=== PATIENT | female | born 1950 | race Caucasian/White ===

== ENCOUNTER 2023-01-01 01:55 | Inpatient (IN) | payer MEDICARE, SELFPAY ==
[2023-01-01] VITALS (130 sets, daily range): BP systolic 66–173; BP diastolic 0–113; PULSE 56–142; RESP 14–29; TEMP 35–36.5; O2SAT 91–100; BMI 67.3; BMI 76.0
--- NOTE | 2023-01-01 02:20 | XR_ITS ---
The [address] [address] Patient Name: DEBORA QUAN MRN: [id number] date: 1950 Sex: F Assigned Patient Location: ER Current Patient Location: ED.MAIN Accession/Order Number: [id number] Exam Date: 01/01/2023 02:35 Report Date: 01/01/2023 03:03 At the request of: ANNA RYAN Procedure: XR chest 1V EXAMINATION: XR chest 1V HISTORY: altered mental COMPARISON: 09/24/2017 TECHNIQUE: AP portable FINDINGS: LUNGS: Low lung lines. Moderate bibasilar infiltrates left greater than right obscuring the hemidiaphragms and partially obscuring the heart borders VASCULATURE: No increased pulmonary vasculature. PLEURA: No pneumothorax, effusion, or pleural thickening. CARDIAC: No cardiomegaly or cardiac silhouette abnormality. MEDIASTINUM: No visible mass or adenopathy. BONES: Mild degenerative disc disease and spondylosis without visible acute abnormalities. OTHER: Enteric tube tip extends off the field of view XR/XR chest 1V IMPRESSION: Moderate bibasilar infiltrates, left greater than right. Electronically authenticated by: KARLIE TONG Date: 01/01/2023 03:03
--- NOTE | 2023-01-01 02:20 | ECG_ITS ---
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
--- NOTE | 2023-01-01 02:25 | ED_ITS ---
HPI - Altered Mental Status General Chief Complaint: Altered Mental Status Stated Complaint: FALL Time Seen by Provider: 01/01/23 02:20 History of Present Illness HPI narrative: patient brought to the ER from home via [facility] for altered mental state. She is completely dependent on the care of her . She is not able to provide any history . states she is nonambulatory for 3 or more years. They have hospital bed and lift in the home. She has become more unresponsive over the past 3 days and worse on day he called squad. Their home is kept at 59 degrees. She arrives hypothermic and lethargic. Her eys move some when her named is called. Also noticed what appears to be coffee ground emesis in her mouth Related Data Home Medications Medication Instructions Recorded Confirmed albuterol sulfate 2.5 mg/3 mL 2.5 mg inhalation Q6H PRN 01/01/23 01/01/23 (0.083 %) solution for nebulization shortness of breath or wheezing apixaban 5 mg tablet (Eliquis) 5 mg PO Q12H 01/01/23 01/01/23 biotin 1,000 mcg chewable tablet 1,000 mcg PO DAILY 01/01/23 01/01/23 centrum complete womens vitamin 1 tab PO DAILY 01/01/23 01/01/23 cholecalciferol (vitamin D3) 125 5,000 unit PO DAILY 01/01/23 01/01/23 mcg (5,000 unit) tablet (Vitamin D3) duloxetine 60 mg capsule,delayed 60 mg PO DAILY 01/01/23 01/01/23 release sprinkle loratadine 10 mg tablet 10 mg PO Q24H 01/01/23 01/01/23 metoprolol succinate 25 mg 12.5 mg PO Q12H 01/01/23 01/01/23 tablet,extended release 24 hr montelukast 10 mg tablet 10 mg PO BEDTIME 01/01/23 01/01/23 nystatin 100,000 unit/gram topical 1 applic topical BID 01/01/23 01/01/23 powder pantoprazole 40 mg tablet,delayed 40 mg PO DAILY 01/01/23 01/01/23 release tiotropium 2.5 mcg-olodaterol 2.5 2 inh inhalation DAILY 01/01/23 01/01/23 mcg/actuation mist for inhalation (Stiolto Respimat) tramadol 50 mg tablet 50 mg PO DAILY PRN pain 01/01/23 01/01/23 vitamin B complex (B 1 tab PO BID 01/01/23 01/01/23 Complex-Vitamin B12 tablet) Allergies Allergy/AdvReac Type Severity Reaction Status Date / Time Penicillins Allergy Unknown Verified 01/01/23 02:50 Review of Systems ROS Status of ROS unobtainable due to mental status [facility] Medical History (Updated 01/01/23 @ 05:31 by Aaron Frank MD) Surgical History (Updated 01/01/23 @ 02:52 by Felicia Cervantes) Social History Smoking status: Never smoker Exam Constitutional Vital Signs, click to edit/add: Last Vital Signs Temp 95 F L 01/01/23 08:15 Pulse 126 H 01/01/23 16:00 Resp 20 01/01/23 16:00 BP 112/79 01/01/23 15:00 Pulse Ox 98 01/01/23 15:58 O2 Del Method Mechanical Ventilator 01/01/23 15:00 O2 Flow Rate 4 01/01/23 15:58 FiO2 50 01/01/23 15:58 Exam limitations: altered mental status General appearance: lethargic Nutritional appearance: obese HENMT Common normals: normocephalic and head/scalp atraumatic Eye Common normals: conjunctivae normal Respiratory Other: diminished breath sounds. No obvious wheezing Cardio Common normals: S1 normal heart sound and S2 normal heart sound GI Common normals: non-tender Extremity General: edema Neuro [place] Coma Scale: GCS not evaluated Course Vital Signs Vital signs: Vital Signs Pulse Oximetry 96 01/01/23 02:00 Oxygen Delivery Method Nasal Cannula 01/01/23 02:00 Oxygen Delivery Flow Rate 4 01/01/23 02:00 Temperature 95 F L 01/01/23 08:15 Pulse Rate 126 H 01/01/23 16:00 Respiratory Rate 20 01/01/23 16:00 Blood Pressure 112/79 01/01/23 15:00 Pulse Oximetry 98 01/01/23 15:58 Oxygen Delivery Method Mechanical Ventilator 01/01/23 15:00 Oxygen Delivery Flow Rate 4 01/01/23 15:58 Fraction of Inspired Oxygen 50 01/01/23 15:58 MDM - Altered Mental Status MDM Narrative Medical decision making narrative: patient arrives unresponsive with history per of declining mental state for past 3 days. Labs reveal PC02 >120 and Ph 7.0. We did place bipap but her ABGs did not change. Patient intubated. Her hyperkalemia treated with D50 , insulin and albuterol NMT. xray with bilat infiltrates. blood cx orderd and Levaquin and vanco IVPB ordered. Patient becoming more responsive and biting on tube. Versed drip ordered to relax the patient so she can tolerate the tube. gastro occult returned positive. NG in place and no evidence of bleed at this time. Protonix IV ordered . Patient is awake and making eye contact. placed her glasses on so she could see everyone. Her BP has decreased to 75 systolic and additional IVF ordered Lab Data Labs: Lab Results 01/01/23 01/01/23 01/01/23 Range/Units 02:10 02:15 02:20 WBC 8.9 (4.0-11.0) 10^3/uL RBC 4.94 (4.20-5.40) 10^6/uL Hgb 13.5 (12.0-16.0) g/dL Hct 48.3 H (36.0-48.0) % MCV 97.8 (81.0-99.0) fL MCH 27.3 (26.7-34.0) pg MCHC 28.0 L (29.9-35.2) g/dL RDW 18.1 H (11.0-15.0) % Plt Count 149 L (150-450) 10^3/uL MPV 10.9 (9.5-13.5) fL Seg Neuts % (Manual) 83.0 Band Neutrophils % 4.0 (0-5) % Lymphocytes % (Manual) 5.0 L (20.5-60.0) % Monocytes % (Manual) 7.0 (1.7-12.0) % Eosinophils % (Manual) 1.0 (0.9-7.0) % Basophils % (Manual) 0.0 L (0.2-2.0) % Neutrophils # (Manual) 7.38 H (1.4-6.5) 10^3/uL Band Neutrophils # 0.4 H (0.0-0.3) 10^3/uL Lymphocytes # (Manual) 0.44 L (1.20-3.80) 10^3/uL Monocytes # (Manual) 0.62 (0.30-0.80) 10^3/uL Eosinophils # (Manual) 0.08 (0.00-0.70) 10^3/uL Basophils # (Manual) 0.00 (0.00-0.10) 10^3/uL Puncture Site ABG pH (7.350-7.450) ABG pCO2 (35.0-45.0) mmHg ABG pO2 (80.0-100.0) mmHg ABG HCO3 (22.0-26.0) mmol/L ABG O2 Saturation % ABG Base Excess (-2.0-2.0) mmol/L Chilo Test (POSITIVE) O2 Liters/Min Vent Mode FiO2 % Tidal Volume BiPAP Sodium 137 (136-145) mmol/L Potassium 5.7 H (3.5-5.1) mmol/L Chloride 99 (98-107) mmol/L Carbon Dioxide 40.2 H (21.0-32.0) mmol/L Anion Gap 3.5 BUN 18.0 (7.0-18.0) mg/dL Creatinine 0.82 (0.55-1.02) mg/dL Est GFR ( Amer) >60 (>=60) Est GFR (Non-Af Amer) >60 (>=60) BUN/Creatinine Ratio 22.0 Glucose 173 H (74-106) mg/dL Lactate 0.9 (0.4-2.0) mmol/L Calcium 9.3 (8.5-10.1) mg/dL Troponin I High Sens 20.1 (4.0-51.3) pg/mL Urine Color Dk. brown (YELLOW) Urine Clarity Cloudy A (CLEAR) Urine pH 6.0 (5.0-9.0) Ur Specific [place] >=1.030 A (1.005-1.025) Urine Protein 100 A (NEG/TRACE) mg/dL Urine Glucose (UA) Negative (NEGATIVE) mg/dL Urine Ketones Negative (NEGATIVE) mg/dL Urine Occult Blood Large A (NEGATIVE) Urine Nitrite Negative (NEGATIVE) Urine Bilirubin Small A (NEGATIVE) Urine Urobilinogen 1.0 (0.2-1.0) EU/dL Ur Leukocyte Esterase Negative (NEGATIVE) Urine RBC >100 A (0-2) #/HPF Urine WBC 5-10 A (NONE SEEN) #/HPF Ur Squamous Epith Cells Rare (NONE/RARE) #/LPF Urine Crystals None seen (None Seen) #/HPF Urine Bacteria Small A (NONE SEEN) #/HPF Urine Casts None seen (NONE SEEN) #/LPF Urine Mucus None seen (NONE SEEN) Ur Culture Indicated? Yes Gastric Fluid pH Gastric Occult Blood Salicylates <2.8 (<=19.9) mg/dL Urine Opiates Screen Cancelled Ur Buprenorphine Scrn Cancelled Ur Oxycodone Screen Cancelled Urine Methadone Screen Cancelled Ur Propoxyphene Screen Cancelled Acetaminophen <2.0 L (10.0-30.0) ug/mL Ur Barbiturates Screen Cancelled U Tricyclic Antidepress Cancelled Ur Phencyclidine Scrn Cancelled Ur Amphetamines Screen Cancelled U Methamphetamines Scrn Cancelled U Benzodiazepines Scrn Cancelled Urine Cocaine Screen Cancelled U Cannabinoids Screen Cancelled Ethanol Quant <3 mg/dL SARS-CoV-2 (PCR) Negative (NEGATIVE) Influenza Type A Ag Negative Influenza Type B Ag Negative SARS-CoV-2 RNA (SHUN) Not detected (NOT DETECTE) POC Glucose (74-106) mg/dL 01/01/23 01/01/23 01/01/23 Range/Units 02:50 03:10 04:00 WBC (4.0-11.0) 10^3/uL RBC (4.20-5.40) 10^6/uL Hgb (12.0-16.0) g/dL Hct (36.0-48.0) % MCV (81.0-99.0) fL MCH (26.7-34.0) pg MCHC (29.9-35.2) g/dL RDW (11.0-15.0) % Plt Count (150-450) 10^3/uL MPV (9.5-13.5) fL Seg Neuts % (Manual) Band Neutrophils % (0-5) % Lymphocytes % (Manual) (20.5-60.0) % Monocytes % (Manual) (1.7-12.0) % Eosinophils % (Manual) (0.9-7.0) % Basophils % (Manual) (0.2-2.0) % Neutrophils # (Manual) (1.4-6.5) 10^3/uL Band Neutrophils # (0.0-0.3) 10^3/uL Lymphocytes # (Manual) (1.20-3.80) 10^3/uL Monocytes # (Manual) (0.30-0.80) 10^3/uL Eosinophils # (Manual) (0.00-0.70) 10^3/uL Basophils # (Manual) (0.00-0.10) 10^3/uL Puncture Site Left radial Left radial ABG pH 7.073 L* 7.051 L* (7.350-7.450) ABG pCO2 >120.0 H* >120.0 H* (35.0-45.0) mmHg ABG pO2 77.5 L 97.1 (80.0-100.0) mmHg ABG HCO3 (22.0-26.0) mmol/L ABG O2 Saturation 93.1 96.3 % ABG Base Excess (-2.0-2.0) mmol/L Chilo Test Pos (POSITIVE) O2 Liters/Min 3.5 Vent Mode FiO2 40 % Tidal Volume BiPAP 18/8 Sodium (136-145) mmol/L Potassium (3.5-5.1) mmol/L Chloride (98-107) mmol/L Carbon Dioxide (21.0-32.0) mmol/L Anion Gap BUN (7.0-18.0) mg/dL Creatinine (0.55-1.02) mg/dL Est GFR ( Amer) (>=60) Est GFR (Non-Af Amer) (>=60) BUN/Creatinine Ratio Glucose (74-106) mg/dL Lactate (0.4-2.0) mmol/L Calcium (8.5-10.1) mg/dL Troponin I High Sens (4.0-51.3) pg/mL Urine Color (YELLOW) Urine Clarity (CLEAR) Urine pH (5.0-9.0) Ur Specific [place] (1.005-1.025) Urine Protein (NEG/TRACE) mg/dL Urine Glucose (UA) (NEGATIVE) mg/dL Urine Ketones (NEGATIVE) mg/dL Urine Occult Blood (NEGATIVE) Urine Nitrite (NEGATIVE) Urine Bilirubin (NEGATIVE) Urine Urobilinogen (0.2-1.0) EU/dL Ur Leukocyte Esterase (NEGATIVE) Urine RBC (0-2) #/HPF Urine WBC (NONE SEEN) #/HPF Ur Squamous Epith Cells (NONE/RARE) #/LPF Urine Crystals (None Seen) #/HPF Urine Bacteria (NONE SEEN) #/HPF Urine Casts (NONE SEEN) #/LPF Urine Mucus (NONE SEEN) Ur Culture Indicated? Gastric Fluid pH 1 Gastric Occult Blood Postive Salicylates (<=19.9) mg/dL Urine Opiates Screen Ur Buprenorphine Scrn Ur Oxycodone Screen Urine Methadone Screen Ur Propoxyphene Screen Acetaminophen (10.0-30.0) ug/mL Ur Barbiturates Screen U Tricyclic Antidepress Ur Phencyclidine Scrn Ur Amphetamines Screen U Methamphetamines Scrn U Benzodiazepines Scrn Urine Cocaine Screen U Cannabinoids Screen Ethanol Quant mg/dL SARS-CoV-2 (PCR) (NEGATIVE) Influenza Type A Ag Influenza Type B Ag SARS-CoV-2 RNA (SHUN) (NOT DETECTE) POC Glucose (74-106) mg/dL 01/01/23 01/01/23 01/01/23 Range/Units 05:39 05:43 05:44 WBC (4.0-11.0) 10^3/uL RBC (4.20-5.40) 10^6/uL Hgb (12.0-16.0) g/dL Hct (36.0-48.0) % MCV (81.0-99.0) fL MCH (26.7-34.0) pg MCHC (29.9-35.2) g/dL RDW (11.0-15.0) % Plt Count (150-450) 10^3/uL MPV (9.5-13.5) fL Seg Neuts % (Manual) Band Neutrophils % (0-5) % Lymphocytes % (Manual) (20.5-60.0) % Monocytes % (Manual) (1.7-12.0) % Eosinophils % (Manual) (0.9-7.0) % Basophils % (Manual) (0.2-2.0) % Neutrophils # (Manual) (1.4-6.5) 10^3/uL Band Neutrophils # (0.0-0.3) 10^3/uL Lymphocytes # (Manual) (1.20-3.80) 10^3/uL Monocytes # (Manual) (0.30-0.80) 10^3/uL Eosinophils # (Manual) (0.00-0.70) 10^3/uL Basophils # (Manual) (0.00-0.10) 10^3/uL Puncture Site Left radial ABG pH 7.237 L* (7.350-7.450) ABG pCO2 90.9 H* (35.0-45.0) mmHg ABG pO2 129.0 H (80.0-100.0) mmHg ABG HCO3 38.6 H (22.0-26.0) mmol/L ABG O2 Saturation 99.2 % ABG Base Excess 11.2 H (-2.0-2.0) mmol/L Chilo Test Pos (POSITIVE) O2 Liters/Min Vent Mode Ac FiO2 40 % Tidal Volume 500 BiPAP Sodium 137 (136-145) mmol/L Potassium 3.5 (3.5-5.1) mmol/L Chloride 105 (98-107) mmol/L Carbon Dioxide 30.5 (21.0-32.0) mmol/L Anion Gap 5.0 BUN 14.0 (7.0-18.0) mg/dL Creatinine 0.64 (0.55-1.02) mg/dL Est GFR ( Amer) >60 (>=60) Est GFR (Non-Af Amer) >60 (>=60) BUN/Creatinine Ratio 21.9 Glucose 303 H (74-106) mg/dL Lactate 1.1 (0.4-2.0) mmol/L Calcium 6.2 L (8.5-10.1) mg/dL Troponin I High Sens (4.0-51.3) pg/mL Urine Color (YELLOW) Urine Clarity (CLEAR) Urine pH (5.0-9.0) Ur Specific [place] (1.005-1.025) Urine Protein (NEG/TRACE) mg/dL Urine Glucose (UA) (NEGATIVE) mg/dL Urine Ketones (NEGATIVE) mg/dL Urine Occult Blood (NEGATIVE) Urine Nitrite (NEGATIVE) Urine Bilirubin (NEGATIVE) Urine Urobilinogen (0.2-1.0) EU/dL Ur Leukocyte Esterase (NEGATIVE) Urine RBC (0-2) #/HPF Urine WBC (NONE SEEN) #/HPF Ur Squamous Epith Cells (NONE/RARE) #/LPF Urine Crystals (None Seen) #/HPF Urine Bacteria (NONE SEEN) #/HPF Urine Casts (NONE SEEN) #/LPF Urine Mucus (NONE SEEN) Ur Culture Indicated? Gastric Fluid pH Gastric Occult Blood Salicylates (<=19.9) mg/dL Urine Opiates Screen Ur Buprenorphine Scrn Ur Oxycodone Screen Urine Methadone Screen Ur Propoxyphene Screen Acetaminophen (10.0-30.0) ug/mL Ur Barbiturates Screen U Tricyclic Antidepress Ur Phencyclidine Scrn Ur Amphetamines Screen U Methamphetamines Scrn U Benzodiazepines Scrn Urine Cocaine Screen U Cannabinoids Screen Ethanol Quant mg/dL SARS-CoV-2 (PCR) (NEGATIVE) Influenza Type A Ag Influenza Type B Ag SARS-CoV-2 RNA (SHUN) (NOT DETECTE) POC Glucose 231 H (74-106) mg/dL Critical Care Time Critical Care Time Critical Care Time: Yes Total Critical Care Time: 2 Attestation: this time spent reviewing labs, discussing with the . ordering additional testing and treatment and personally monitoring the patient Discharge Plan Discharge Chief Complaint: Altered Mental Status Clinical Impression: Hypothermia, Respiratory failure, Aspiration pneumonia of both lower lobes, Altered mental status, Acute upper GI bleed, Acute hyperkalemia, Acute respiratory acidosis, Atrial fibrillation Patient Disposition: Admitted As Inpatient Time of Disposition Decision: 05:50 Condition: Critical Discharge Date/Time: 01/01/23 07:10 Procedures ED Procedure Instructions Procedures Procedures: patient in respiratory failure : patient intubated on 2nd attempt with #7 ET tube. Tolerated the procedure well without complications
[2023-01-01] MEDS: 0.9 % SODIUM CHLORIDE 1,000 ML 999 ML IV ×4 (02:27→07:20)
[2023-01-01 02:35] LABS: Hematocrit 48.3 % (36.0-48.0); Hemoglobin 13.5 g/dL (12.0-16.0); Mean Corpuscular Hemoglobin 27.3 pg (26.7-34.0); Mean Corpuscular Volume 97.8 fL (81.0-99.0); Mean Platelet Volume 10.9 fL (9.5-13.5); Platelet Count 149 10^3/uL (150-450); Red Blood Count 4.94 10^6/uL (4.20-5.40); Red Cell Distribution Width 18.1 % (11.0-15.0); White Blood Count 8.9 10^3/uL (4.0-11.0)
[2023-01-01 02:36] LABS: Bilirubin Urine SMALL (NEGATIVE); Blood Urine LARGE (NEGATIVE); Clarity Urine CLOUDY (CLEAR); Color Urine DK. BROWN (YELLOW); Glucose Urine UA NEGATIVE (NEGATIVE); Ketones Urine NEGATIVE (NEGATIVE); Leukocyte Esterase Urine NEGATIVE (NEGATIVE); Nitrite Urine NEGATIVE (NEGATIVE); Protein Urine 100 mg/dL (NEG/TRACE); Specific Gravity Urine >=1.030 (1.005-1.025)
[2023-01-01 02:40] LABS: Urine Microscopic Indicated YES
[2023-01-01 02:44] LABS: Bacteria Urine SMALL #/HPF (NONE SEEN); Cast Seen? NONE SEEN #/LPF (NONE SEEN); Crystals Seen? None Seen #/HPF (None Seen); Mucus Urine NONE SEEN (NONE SEEN); RBC Urine >100 #/HPF (0-2); Squamous Epithelial Cell Urine RARE #/LPF (NONE/RARE); Urine Culture Indicated YES
[2023-01-01 02:52] LABS: Anion Gap 3.5; Calcium 9.3 mg/dL (8.5-10.1); Carbon Dioxide 40.2 mmol/L (21.0-32.0); Chloride 99 mmol/L (98-107); Estimated GFR (African America >60 (>=60); Estimated GFR (Non-African Ame >60 (>=60); Glucose 173 mg/dL (74-106); Lactate/Lactic Acid 0.9 mmol/L (0.4-2.0); Potassium 5.7 mmol/L (3.5-5.1); Salicylate <2.8 mg/dL (<=19.9); Sodium 137 mmol/L (136-145); Troponin I High Sensitivity 20.1 pg/mL (4.0-51.3)
--- NOTE | 2023-01-01 02:53 | PC.NURSE ---
pt brought in by EMS. pt states that over the last 3 days pt has become increasingly more confused and is lethargic. pt is normally alert and oriented and gets around via lift chair at home. pt states that over the last 6 hours pt has become increasingly worse. states patient hit the wrong button on her lift chair and slid out of chair onto floor. states that pt did not hit her head. pt has hx of copd and wears 2 liters nasal cannula at all times. when ems arrived pt was satting at 89% on 2 liters, pt was placed on 4liteers and now satting at 96%. rectal temp is 85.1. bear hugger initiated and warm iv fluids started. pt states that pt hasn't had a bowel movement in 2 days. not eating or drinking much of anything. denies n/v. pt is alert to verbal stimuli and says 'yes and no as well as mumbles.
[2023-01-01 02:56] LABS: PO2 ABG 77.5 mmHg (80.0-100.0)
[2023-01-01 02:58] LABS: Liters per Minute 3.5; Oxygen Saturation ABG 93.1 %
[2023-01-01 03:00] LABS: Puncture Site LEFT RADIAL; pH ABG 7.073 (7.350-7.450)
--- NOTE | 2023-01-01 03:00 | PC.NURSE ---
16 F baker inserted at this time by ever weaver. dark brown urine return. urine collected and sent to lab.
[2023-01-01 03:01] LABS: ABG PCO2 >120.0 mmHg (35.0-45.0)
[2023-01-01 03:01] LABS: Band Neutrophils Absolute 0.4 10^3/uL (0.0-0.3); Eosinophils Absolute Manual 0.08 10^3/uL (0.00-0.70); Lymphocytes Absolute Manual 0.44 10^3/uL (1.20-3.80); Monocytes Absolute Manual 0.62 10^3/uL (0.30-0.80); Segmented Neut Absolute Manual 7.38 10^3/uL (1.4-6.5)
[2023-01-01 03:02] LABS: Acetaminophen <2.0 ug/mL (10.0-30.0); Ethanol <3 mg/dL
--- NOTE | 2023-01-01 03:02 | PC.NURSE ---
when pt arrived, pt had brown fluid coming from mouth, denies that patient has eaten anything. ng tube inserted into right nare measuring 60 at the nostril. ng tube taped in place. brown/yellow drainage return. placed on low intermittent suction. pt attempted to yank ng tube out of nose twice. pt placed in soft wrist restraints.
--- NOTE | 2023-01-01 03:05 | PC.NURSE ---
covid and flu swabbed obtained by ever weaver
--- NOTE | 2023-01-01 03:06 | PC.NURSE ---
respiratory at bedside collecting ABG results.
--- NOTE | 2023-01-01 03:07 | PC.NURSE ---
critical ABG results back and physician notified. ordered for BIPAP to be started for 30 minutes and then to recheck ABG. respiratory at bedside placing pt on BIPAP. PHYSICIAN at bedside discussing care with pt .
[2023-01-01] MEDS: PANTOPRAZOLE SODIUM 40 MG VIAL IV ×3 (03:17→20:16)
[2023-01-01] MEDS: ONDANSETRON PF 4 MG/2 ML VIAL IV (03:17)
[2023-01-01] MEDS: 0.9 % SODIUM CHLORIDE 2,000 ML 999 ML (03:21)
--- NOTE | 2023-01-01 03:33 | PC.NURSE ---
was in to talk with and discuss POC.
[2023-01-01 03:37] LABS: Occult Blood Gastric Fluid POSTIVE; pH Gastric Fluid 1
[2023-01-01 03:38] LABS: Internal Control Within Normal Limits
[2023-01-01 03:46] LABS: SARS-CoV-2 Ag NEGATIVE (NEGATIVE)
[2023-01-01 04:05] LABS: Influenza Virus A Antigen Negative; Influenza Virus B Antigen Negative; Internal Control Within Normal Limits
[2023-01-01 04:06] LABS: Allen Test POS (POSITIVE); BIPAP Pressure 18/8; Fractionated Inspired Oxygen 40 %; O2 Mode BIPAP; Oxygen Saturation ABG 96.3 %; PO2 ABG 97.1 mmHg (80.0-100.0); Puncture Site LEFT RADIAL
[2023-01-01 04:07] LABS: ABG PCO2 >120.0 mmHg (35.0-45.0); pH ABG 7.051 (7.350-7.450)
[2023-01-01] MEDS: LORAZEPAM 2 MG/ML 1 ML VIAL IV (04:16)
--- NOTE | 2023-01-01 04:30 | PC.NURSE ---
0416- 2mg ativan given 0417- 20mg of etomidate given 0418- hyperoxygenated and bagged by RT 0419- bagging by RT 0420- FIRST attempt assessing airway with GlideScope 0421- bagging; dr. camara suctioning airway, 2nd attempt assessing airway with Glidescope 0422- 7.0 ET tube inserted, 24 at the teeth, color change noted, RT bagging; breath sounds verified by west rn 0429- patient placed on ventilator
--- NOTE | 2023-01-01 04:33 | XR_ITS ---
The [address] [address] Patient Name: DEBORA QUAN MRN: [id number] date: 1950 Sex: F Assigned Patient Location: ER Current Patient Location: ER Accession/Order Number: [id number] Exam Date: 01/01/2023 04:35 Report Date: 01/01/2023 05:15 At the request of: ANNA RYAN Procedure: XR chest 1V EXAM: XR chest 1V HISTORY: tube placement COMPARISON: 01/01/2023 at 0209 hours earlier the same day TECHNIQUE: AP upright portable chest FINDINGS: There are low lung volumes. Patient is intubated. Endotracheal tube tip is approximately 4.4 cm above jaycob. There is an esophagogastric catheter with tip extending at least into the stomach and excluded from view. There is cardiomegaly. Left much worse than right bibasilar opacities noted. There may be a component of mild pulmonary vascular congestion but no ata pulmonary edema. No definite effusion. XR/XR chest 1V IMPRESSION: 1. Endotracheal tube placed with tip 4.4 cm above jaycob. 2. Esophagogastric tube with tip excluded from view but is at least into the stomach. 3. Stable cardiomegaly with probable mild vascular congestion. No ata pulmonary edema. 4. Expiratory chest and left worse than right bibasilar opacities, probably atelectasis. Left lower lobe pneumonia not excluded. No definite effusion. Electronically authenticated by: RONIT DALLAS Date: 01/01/2023 05:15
[2023-01-01] MEDS: MIDAZOLAM HCL 2 MG/2 ML VIAL (04:34)
[2023-01-01] MEDS: ALBUTEROL SULFATE 2.5 MG/3 ML VIAL NEB (04:45)
[2023-01-01] MEDS: DEXTROSE 50 %-WATER 25 GM/50 ML SYRINGE IV (04:46)
[2023-01-01] MEDS: INSULIN REGULAR 300 UNITS/3 ML 10 UNIT INJ (04:48)
[2023-01-01] MEDS: 0.9 % SODIUM CHLORIDE 100 ML IV (05:04)
[2023-01-01] MEDS: ETOMIDATE 20 MG/10 ML VIAL IV (05:20)
[2023-01-01] MEDS: LEVOFLOXACIN IN DEXTROSE 5 % 750 MG/150 ML PIGGYBACK IV (05:39)
[2023-01-01 05:42] LABS: Glucometer 231 mg/dL (74-106)
--- NOTE | 2023-01-01 05:49 | PC.NURSE ---
04:55 Bolus of 4 mg Versed 05:36 repeat 4 mg Versed both removed from Versed drip.
[2023-01-01 05:51] LABS: Base Excess ABG 11.2 mmol/L (-2.0-2.0); Fractionated Inspired Oxygen 40 %; HCO3 ABG 38.6 mmol/L (22.0-26.0); O2 Mode VENT; Oxygen Saturation ABG 99.2 %; Puncture Site LEFT RADIAL; Rate 20; Tidal Volume 500; Vent Mode AC
--- NOTE | 2023-01-01 05:52 | PC.NURSE ---
at [facility] side
[2023-01-01 05:53] LABS: Allen Test POS (POSITIVE)
[2023-01-01 05:54] LABS: ABG PCO2 90.9 mmHg (35.0-45.0); pH ABG 7.237 (7.350-7.450)
[2023-01-01 06:00] LABS: BUN Creatinine Ratio 21.9; Carbon Dioxide 30.5 mmol/L (21.0-32.0); Chloride 105 mmol/L (98-107); Estimated GFR (African America >60 (>=60); Estimated GFR (Non-African Ame >60 (>=60); Glucose 303 mg/dL (74-106); Potassium 3.5 mmol/L (3.5-5.1); Sodium 137 mmol/L (136-145)
[2023-01-01 06:10] LABS: Lactate/Lactic Acid 1.1 mmol/L (0.4-2.0)
[2023-01-01 06:12] LABS: Calcium 6.2 mg/dL (8.5-10.1)
--- NOTE | 2023-01-01 06:48 | PC.NURSE ---
Temp 88.1 Temporal
--- NOTE | 2023-01-01 07:31 | PC.NURSE ---
At cart side almost continuous. Patient alert , oral care given. Remained restrained due to pulling at the ET tube.
[2023-01-01] MEDS: NOREPINEPHRINE BITARTRATE 4 MG in DEXTROSE 5 % IN WATER 250 ML 37.5 MG IV ×2 (08:00→12:00)
--- NOTE | 2023-01-01 08:29 | CA_ITS ---
Patient: DEBORA QUAN Exam Date: 01/01/2023 : 1950 Gender:F Ordering : DR Merritt Solorzano . Admission #: [id number] Family : DR. DAMIAN LINDSAY . Order #: [id number] CLICK HERE TO VIEW EXAM ECHOCARDIOGRAM REPORT PROCEDURE: CA ECHO DOPPLER COMPLETE INDICATIONS: Dyspnea, respiratory distress (ventilator). atrial fibrillation COMPARISON: None. DESCRIPTION: COMPLETE ECHOCARDIOGRAM Real-time transthoracic echocardiography with 2D, M-mode, spectral and color flow Doppler performed. QUALITY: Technically difficult due to patients condition. Patient on ventilator. 67 430# LEFT VENTRICLE: Normal chamber size. Mild concentric left ventricular hypertrophy. Hyperdynamic systolic function. LV EF: Normal left ventricular ejection fraction, (75%). DIASTOLIC: Not adequately assessed due to heart rhythm. ATRIAL SEPTUM: LEFT ATRIUM: Normal chamber size. RIGHT ATRIUM: Normal chamber size. RIGHT VENTRICLE: Normal chamber size. Normal systolic function. TRICUSPID VALVE: Not well visualized. No stenosis with trivial regurgitation. No evidence of pulmonary hypertension. RVSP 29 mmHg MITRAL VALVE: Normal mobility and thickness. No evidence of mitral valve stenosis. Mild mitral annular calcification. No mitral regurgitation. AORTIC VALVE: Normal trileaflet appearance. No visible sclerosis. Normal leaflet mobility. No evidence of aortic valve stenosis. No aortic regurgitation. AORTIC ROOT: Normal diameter and appearance. PULMONIC VALVE: Not well visualized. No stenosis. No regurgitation. PERICARDIUM: No evidence of pericardial effusion. IVC: PLEURA: CONCLUSION: 1. Mild concentric left ventricular hypertrophy. Hyperdynamic systolic function. LVEF is 75%. 2. Normal right ventricular size and systolic function. 3. No significant valvular dysfunction. 4. Normal right-sided pressures. 5. No pericardial effusion. Adult Echocardiography Procedure Report Left Ventricle LVEDD (3.7 - 5.6 cm): 3.96 cm, 4.80 cm LVESD (2.2 - 4.0 cm): 3.58 cm, 2.63 cm LVIVS thickness (0.6 - 1.2 cm): 0.99 cm, 1.06 cm LVPW thickness (0.5 - 1.0 cm): 1.20 cm LVOT Max Gradient: 2.61 mm[Hg] LVOT Area (cm2): 0.81 m/s Peak Velocity (LVOT): 0.81 m/s LVOT Diameter 1.89 cm Left Atrium Left Atrium Systolic Dimension: 3.16 cm Mitral Valve Mitral Valve E-Wave Peak Velocity: 0.86 m/s Right Ventricle Aorta AO Root Diam: 3.31 cm Aortic Valve AoV Area (Peak José): 1.67 cm2, 1.67 cm2 Peak Velocity(Antegrade Flow): 1.36 m/s Peak Gradient(Antegrade Flow): 7.36 mm[Hg] Tricuspid Valve Peak Velocity (Regurgitant Flow): 2.55 m/s Pulmonic Valve Peak Velocity: 1.43 m/s Peak Gradient: 8.23 mm[Hg] Right Atrium Dictated by: Ricardo Calloway M.D. on 01/01/2023 at 17:37 Approved by: Ricardo Callowya M.D. on 01/01/2023 at 17:44
--- NOTE | 2023-01-01 08:30 | CM.NOTE ---
Rounds made with Dr. Solorzano, pt intubated at this time with Dr. De Dios to follow. Pt lives at home with , uses Gabriele Lift from bed to wheelchair. states she is able to bear some weight at times but still requires Gabriele . SW and Case Management will follow for discharge needs.
--- NOTE | 2023-01-01 08:59 | P.HP_ITS ---
H&P: HPI History of Present Illness Chief complaint: FALL Narrative: Patient is essentially bedbound over several years has had upper respiratory symptoms for the last week or so. But last 24 hours patient is becoming increasing weakness. Normally she can help bear some weight on her legs but not significantly but today she was not bearing any weight on her legs not helping him to try to get on and off the toilet. Patient presented to the emergency room with hypoxia, hypothermia, hypotensive, relative bradycardia, patient found to be septic with pneumonia was intubated in the ER. Transferred up to ICU for continued care. Review of Systems ROS Constitutional Reports: fever, fatigue and night sweats Respiratory Reports: shortness of breath and cough Musculoskeletal Reports: back pain, extremity pain and extremity swelling [facility] Medical History (Updated 01/01/23 @ 05:31 by Aaron Frank MD) Surgical History (Updated 01/01/23 @ 02:52 by Felicia Cervantes) Social History Smoking status: Never smoker Meds Home Medications and Allergies Home Medications Medication Instructions Recorded Confirmed Type albuterol sulfate 2.5 mg/3 mL 2.5 mg inhalation Q6H PRN 01/01/23 01/01/23 History (0.083 %) solution for nebulization shortness of breath or wheezing apixaban 5 mg tablet (Eliquis) 5 mg PO Q12H 01/01/23 01/01/23 History biotin 1,000 mcg chewable tablet 1,000 mcg PO DAILY 01/01/23 01/01/23 History centrum complete womens vitamin 1 tab PO DAILY 01/01/23 01/01/23 History cholecalciferol (vitamin D3) 125 5,000 unit PO DAILY 01/01/23 01/01/23 History mcg (5,000 unit) tablet (Vitamin D3) duloxetine 60 mg capsule,delayed 60 mg PO DAILY 01/01/23 01/01/23 History release sprinkle loratadine 10 mg tablet 10 mg PO Q24H 01/01/23 01/01/23 History metoprolol succinate 25 mg 12.5 mg PO Q12H 01/01/23 01/01/23 History tablet,extended release 24 hr montelukast 10 mg tablet 10 mg PO BEDTIME 01/01/23 01/01/23 History nystatin 100,000 unit/gram topical 1 applic topical BID 01/01/23 01/01/23 History powder pantoprazole 40 mg tablet,delayed 40 mg PO DAILY 01/01/23 01/01/23 History release tiotropium 2.5 mcg-olodaterol 2.5 2 inh inhalation DAILY 01/01/23 01/01/23 History mcg/actuation mist for inhalation (Stiolto Respimat) tramadol 50 mg tablet 50 mg PO DAILY PRN pain 01/01/23 01/01/23 History vitamin B complex (B 1 tab PO BID 01/01/23 01/01/23 History Complex-Vitamin B12 tablet) Allergies Allergy/AdvReac Type Severity Reaction Status Date / Time Penicillins Allergy Unknown Verified 01/01/23 02:50 Exam Narrative Exam Narrative: On ventilator, awake Constitutional Vital Signs, click to edit/add: Last Vital Signs Temp 95 F L 01/01/23 02:33 Pulse 61 01/01/23 07:25 Resp 20 01/01/23 07:25 BP 70/0 L 01/01/23 06:47 Pulse Ox 99 01/01/23 07:25 O2 Del Method Mechanical Ventilator 01/01/23 07:25 O2 Flow Rate 4 01/01/23 02:33 FiO2 40 01/01/23 07:25 HENMT Common normals: oral mucous membranes not moist Nose: nasal mucous membranes&turbinates abnorm Respiratory Common normals: abnormal respiratory effort and not clear to ascultation bilaterally Effort & inspection: respiratory distress Auscultation: rhonchi and diminished lung sounds Cardio Rate: bradycardic Rhythm: abnormal rhythm GI Common normals: soft to palpation, non-tender and no masses Extremity Common normals: abnormal to inspection Other: Bilateral lower extremities with 3-4+ edema lower EXTR chronic, erythema as well. Neuro Sensorium/orientation: awake Results Labs Labs: Short CBC 01/01/23 Range/Units 02:10 WBC 8.9 (4.0-11.0) 10^3/uL Hgb 13.5 (12.0-16.0) g/dL Hct 48.3 H (36.0-48.0) % Plt Count 149 L (150-450) 10^3/uL BMP 01/01/23 01/01/23 02:10 05:43 Sodium 137 137 Potassium 5.7 H 3.5 Chloride 99 105 Carbon Dioxide 40.2 H 30.5 BUN 18.0 14.0 Creatinine 0.82 0.64 Glucose 173 H 303 H Calcium 9.3 6.2 L Urine 01/01/23 Range/Units 02:20 Urine Color Dk. brown (YELLOW) Urine Clarity Cloudy A (CLEAR) Urine pH 6.0 (5.0-9.0) Ur Specific [place] >=1.030 A (1.005-1.025) Urine Protein 100 A (NEG/TRACE) mg/dL Urine Glucose (UA) Negative (NEGATIVE) mg/dL ABG ABG results: 01/01/23 01/01/23 01/01/23 02:50 04:00 05:44 ABG pH 7.073 L* 7.051 L* 7.237 L* ABG pCO2 >120.0 H* >120.0 H* 90.9 H* ABG pO2 77.5 L 97.1 129.0 H ABG HCO3 38.6 H ABG O2 Saturation 93.1 96.3 99.2 ABG Base Excess 11.2 H Assessment and Plan Assessment and Plan (1) Hypothermia: (2) Respiratory failure: (3) Aspiration pneumonia of both lower lobes: (4) Altered mental status: (5) Acute upper GI bleed: (6) Acute hyperkalemia: (7) Acute respiratory acidosis: (8) Atrial fibrillation: Plan AMS, Acute hypoxic respiratory failure with severe sepsis with septic shock, metabolic and respiratory acidosis, relative bradycardia secondary to pneumonia bilateral, worse on the left-patient currently intubated, on Levophed, IV fluid s, she has received 5 L, will repeat bolus, add albumin, add hydrocortisone. Broad-spectrum antibiotics. Vancomycin for MRSA, clindamycin for better anaerobic coverage and amikacin for gram-negative. Try to obtain sputum culture, blood cultures pending, urine culture pending. Pulmonology to manage ventilator Acute hypoxic respiratory failure-on ventilator-management per pulmonology Hematuria and positive UA-culture [id number] antibiotics for the above Acute upper gastrointestinal bleeding-repeat CBC later today.On IV Protonix twice daily. Thrombocytopenia-likely secondary to above-monitor daily Hyperkalemia on admission this is likely secondary to the acidosis. Improved currently. Monitor closely. Atrial fibrillation-rate currently controlled, Will hold off on anticoagulation today other than Lovenox low-doseDue to the acute upper gastrointestinal bleeding Patient may be admitted to the ICU with inpatient care. On a ventilator. Sepsis with septic shock. Likely stay in the hospital 4 to 5 days minimum
[2023-01-01 09:12] LABS: Magnesium 1.6 mg/dL (1.8-2.4)
[2023-01-01 09:13] LABS: Ammonia 30 umol/L (11-32)
[2023-01-01 09:24] LABS: INR 1.05; Partial Thromboplastin Time 34.4 sec (22.3-36.2); Prothrombin Time 11.1 sec (9.0-11.6)
[2023-01-01 09:29] LABS: Free T3 1.41 pg/mL (2.18-3.98); Thyroid Stimulating Hormone 1.258 uIU/mL (0.358-3.740)
[2023-01-01 09:31] LABS: Lactate/Lactic Acid 1.2 mmol/L (0.4-2.0)
[2023-01-01 09:37] LABS: Creatine Kinase 69 U/L (26-192)
[2023-01-01 09:39] LABS: Creatine Kinase MB 10.07 ng/mL (<=3.60)
--- NOTE | 2023-01-01 10:55 | PC.NURSE ---
this nurse with Brooks RN have been with patient from time of arrival at [phone] one on one care given baker drng dark tea colored urine 0710 rectal temp of 88 obtained and bear hugger placed on patient warm fluids initiated 22g to left ac 20 g to rt ac and 20 g to rt hand with warmed fluids and versed infusing at times pt will squeeze staff hands and respond by nodding head family at bedside levaquin infused and completed 6lns infused during this time levophed initiated at 0800 12mcg/min after bp of 60/40- bp after infusion starts 109/79 baker emptied at 0915 225 cc of dark tea colored urine 22g iv initiated to left hand after 22g to left ac was leaking at iv site 1025- arterial line placed per anesthesia iv to left hand and rt ac came out during arterial line placement at this time 1100 picc line being placed by access clerk at this time
--- NOTE | 2023-01-01 11:25 | XR_ITS ---
The [address] [address] Patient Name: DEBORA QUAN MRN: [id number] date: 1950 Sex: F Assigned Patient Location: ICU Current Patient Location: ICU Accession/Order Number: [id number] Exam Date: 01/01/2023 11:15 Report Date: 01/01/2023 11:43 At the request of: KENNA WOODS Procedure: XR chest 1V XR chest 1V 01/01/2023 11:15 AM EDT INDICATION: PICC line insertion COMPARISON: Radiograph the chest 01/01/2023 FINDINGS: Cardiomegaly. Diffuse interstitial prominence with left basilar opacity. Persistent right basilar opacity has improved slightly in the interval. Left PICC with tip in the proximal SVC. Endotracheal and nasogastric tubes appear grossly unchanged in position. No pneumothorax. No acute fracture or dislocation. XR/XR chest 1V IMPRESSION: Left PICC in satisfactory position. Electronically authenticated by: MICKEY OROPEZA Date: 01/01/2023 11:43
[2023-01-01] MEDS: IPRATROPIUM/ALBUTEROL SULFATE 3 ML AMPUL.NEB IH ×3 (11:29→20:40)
--- NOTE | 2023-01-01 11:39 | PM.PLCN ---
History of Present Illness History of Present Illness Consult date: 01/01/23 Requesting physician: Merritt Solorzano Reason for consult: other (Acute respiratory failure) Chief complaint: FALL Narrative: 72yo female with multiple medical comorbidities presented to the ER in respiratory distress. 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 She developed worsening confusion and sedation over the past few days. Upon evaluation in the ER, she was obtunded. ABG showed an elevated pCO2 above the highest registerable value. She was placed on BiPAP which failed to improve her hypercapnia. She was emergently intubated in the ER with a 7.0 ETT. She has also developed hypotension, requiring norepinephrine gtt. Questionable upper GI bleed. Arterial line and PICC have been placed. While in the ICU, she developed wide-complex tachycardia and then atrial fibrillation with a mildly rapid rate (130's). None was seen after that brief period. F/U ABG shows improvement in pH and pCO2. Review of Systems ROS Status of ROS unobtainable due to endotracheal tube, unobtainable due to medical condition and unobtainable due to mental status [facility] Medical History (Updated 01/01/23 @ 05:31 by Aaron Frank MD) Surgical History (Updated 01/01/23 @ 02:52 by Felicia Cervantes) Social History Smoking status: Never smoker Meds Home Medications and Allergies Home Medications Medication Instructions Recorded Confirmed Type albuterol sulfate 2.5 mg/3 mL 2.5 mg inhalation Q6H PRN 01/01/23 01/01/23 History (0.083 %) solution for nebulization shortness of breath or wheezing apixaban 5 mg tablet (Eliquis) 5 mg PO Q12H 01/01/23 01/01/23 History biotin 1,000 mcg chewable tablet 1,000 mcg PO DAILY 01/01/23 01/01/23 History centrum complete womens vitamin 1 tab PO DAILY 01/01/23 01/01/23 History cholecalciferol (vitamin D3) 125 5,000 unit PO DAILY 01/01/23 01/01/23 History mcg (5,000 unit) tablet (Vitamin D3) duloxetine 60 mg capsule,delayed 60 mg PO DAILY 01/01/23 01/01/23 History release sprinkle loratadine 10 mg tablet 10 mg PO Q24H 01/01/23 01/01/23 History metoprolol succinate 25 mg 12.5 mg PO Q12H 01/01/23 01/01/23 History tablet,extended release 24 hr montelukast 10 mg tablet 10 mg PO BEDTIME 01/01/23 01/01/23 History nystatin 100,000 unit/gram topical 1 applic topical BID 01/01/23 01/01/23 History powder pantoprazole 40 mg tablet,delayed 40 mg PO DAILY 01/01/23 01/01/23 History release tiotropium 2.5 mcg-olodaterol 2.5 2 inh inhalation DAILY 01/01/23 01/01/23 History mcg/actuation mist for inhalation (Stiolto Respimat) tramadol 50 mg tablet 50 mg PO DAILY PRN pain 01/01/23 01/01/23 History vitamin B complex (B 1 tab PO BID 01/01/23 01/01/23 History Complex-Vitamin B12 tablet) Allergies Allergy/AdvReac Type Severity Reaction Status Date / Time Penicillins Allergy Unknown Verified 01/01/23 02:50 Exam Constitutional Vital Signs, click to edit/add: Last Vital Signs Temp 95 F L 01/01/23 02:33 Pulse 61 01/01/23 07:25 Resp 20 01/01/23 07:25 BP 70/0 L 01/01/23 06:47 Pulse Ox 99 01/01/23 07:25 O2 Del Method Mechanical Ventilator 01/01/23 07:25 O2 Flow Rate 4 01/01/23 02:33 FiO2 40 01/01/23 07:25 Documenting provider has reviewed patient's vital signs: yes General appearance: anxious, ill appearing chronically and patient mechanically ventilated Nutritional appearance: obese morbidly obese [facility] Other: 7.0 ETT Chest Common normals: inspection of chest normal Respiratory Auscultation: wheezes expiratory wheezes and upper bilaterally and diminished lung sounds Cardio Rate: tachycardic (brief period of wide-complex) Rhythm: abnormal rhythm irregularly irregular GI Inspection: central obesity (significant obesity) Bladder/kidney exam: catheter in place Extremity General: edema (significant bilateral lower extremity lymphedema) Neuro Other: Sedated, but awakens easily on Versed gtt Results Laboratory Findings ABG, PT/INR, D-dimer: ABG ABG pH 7.237 (7.350-7.450) L* 01/01/23 05:44 ABG pCO2 90.9 mmHg (35.0-45.0) H* 01/01/23 05:44 ABG pO2 129.0 mmHg (80.0-100.0) H 01/01/23 05:44 ABG O2 Saturation 99.2 % 01/01/23 05:44 PT/INR, D-dimer PT 11.1 sec (9.0-11.6) 01/01/23 08:56 INR 1.05 01/01/23 08:56 Abnormal lab findings: Abnormal Labs 01/01/23 01/01/23 01/01/23 02:10 02:20 02:50 Hct 48.3 H MCHC 28.0 L RDW 18.1 H Plt Count 149 L Lymphocytes % (Manual) 5.0 L Basophils % (Manual) 0.0 L Neutrophils # (Manual) 7.38 H Band Neutrophils # 0.4 H Lymphocytes # (Manual) 0.44 L ABG pH 7.073 L* ABG pCO2 >120.0 H* ABG pO2 77.5 L ABG HCO3 ABG Base Excess Potassium 5.7 H Carbon Dioxide 40.2 H Glucose 173 H Calcium Magnesium CK-MB (CK-2) Free T3 Urine Clarity Cloudy A Ur Specific [place] >=1.030 A Urine Protein 100 A Urine Occult Blood Large A Urine Bilirubin Small A Urine RBC >100 A Urine WBC 5-10 A Urine Bacteria Small A Acetaminophen <2.0 L POC Glucose 01/01/23 01/01/23 01/01/23 04:00 05:39 05:43 Hct MCHC RDW Plt Count Lymphocytes % (Manual) Basophils % (Manual) Neutrophils # (Manual) Band Neutrophils # Lymphocytes # (Manual) ABG pH 7.051 L* ABG pCO2 >120.0 H* ABG pO2 ABG HCO3 ABG Base Excess Potassium Carbon Dioxide Glucose 303 H Calcium 6.2 L Magnesium CK-MB (CK-2) Free T3 Urine Clarity Ur Specific [place] Urine Protein Urine Occult Blood Urine Bilirubin Urine RBC Urine WBC Urine Bacteria Acetaminophen POC Glucose 231 H 01/01/23 01/01/23 05:44 08:56 Hct MCHC RDW Plt Count Lymphocytes % (Manual) Basophils % (Manual) Neutrophils # (Manual) Band Neutrophils # Lymphocytes # (Manual) ABG pH 7.237 L* ABG pCO2 90.9 H* ABG pO2 129.0 H ABG HCO3 38.6 H ABG Base Excess 11.2 H Potassium Carbon Dioxide Glucose Calcium Magnesium 1.6 L CK-MB (CK-2) 10.07 H* Free T3 1.41 L Urine Clarity Ur Specific [place] Urine Protein Urine Occult Blood Urine Bilirubin Urine RBC Urine WBC Urine Bacteria Acetaminophen POC Glucose Diagnostic Findings Chest x-ray: report reviewed Assessment and Plan Assessment and Plan (1) Hypothermia: (2) Respiratory failure: (3) Aspiration pneumonia of both lower lobes: (4) Altered mental status: (5) Acute upper GI bleed: (6) Acute hyperkalemia: (7) Acute respiratory acidosis: (8) Atrial fibrillation: Plan 1. Pneumonia. Working diagnosis. Concern for aspiration. She was started on vancomycin, clindamycin, and amikacin. Given her critical illness, I agree with continuing the current antibiotics. Adjust accordingly to C&S results. 2. Septic shock secondary to #1. Patient is requiring norepinephrine. On Solu-Cortef. Add epinephrine if norepinephrine is not adequate to maintain MAP >65. 3. Wyiyu-aw-jwigxzo hypoxic respiratory failure. Patient is on O2 @ home. Requiring ventilator for support. For now, goal SpO2 90-92% given hypercapnia. 4. Acute hypercapnic respiratory failure. Suspect patient has baseline hypercapnia given hyper obesity and presumptive BOB/OHS given her habitus. Increased hypersomonlence over the past several days suggests gradual increase in pCO2. Failed BiPAP in ER, intubated. Will need F/U...given morbid obesity and sedentary lifestyle, may need home sleep testing and auto-BiPAP outpatient. 5. Acute exacerbation of COPD. Secondary to pneumonia, sepsis. Was on Stiolto. No PFTs noted. Continue neb treatments, change albuterol to levalbuterol if it seems to be exacerbating heart rate. 6. Paroxysmal atrial fibrillation with rapid ventricular rate. Exacerbated by acute illness, sepsis. Rate-control. 7. Wide-complex tachycardia. May be rate-dependent bundle branch block, less likely ventricular tachycardia. Monitor closely, consult cardiology if worsens. 8. Hyperkalemia. Secondary to acute acidosis (extracellular shift). K+ will decrease as acidosis is corrected. 9. UTI. Patient has had history of hematuria, previously evaluated with negative w/up according to Dr. Meng's notes. Continue antibiotics, awaiting C&S. 10. Diabetes mellitus type 2. Monitor for steroid-induced hyperglycemia. 11. Hypertension. Hold antihypertensives given septic shock. 12. Morbid/hyper obesity. Estimated weight is 430# (BMI 67). She is sedentary, does not really leave house. Totally dependent on . Decreased calorie intake is recommeended. Patient is critically ill requiring intensive care unit monitoring. She is on the ventilator and has septic shock on pressors. High risk of morbidity and mortality. 60 minutes critical care time, including discussion with Dr. Solorzano, RN, and RT multiple times.
[2023-01-01 11:43] LABS: pH ABG 7.306 (7.350-7.450)
[2023-01-01 11:44] LABS: ABG PCO2 75.1 mmHg (35.0-45.0); Allen Test POSITIVE (POSITIVE); Base Excess ABG 11.1 mmol/L (-2.0-2.0); Fractionated Inspired Oxygen 40 %; HCO3 ABG 37.4 mmol/L (22.0-26.0); O2 Mode VENT; Oxygen Saturation ABG 97.9 %; PO2 ABG 90.1 mmHg (80.0-100.0); Puncture Site ART LINE; Vent Mode AC
[2023-01-01 11:45] LABS: Rate 20; Tidal Volume 500
[2023-01-01] MEDS: PROPOFOL 1,000 MG/100 ML VIAL 5.851 MG IV ×7 (12:00→22:28)
[2023-01-01 12:13] LABS: Magnesium 1.6 mg/dL (1.8-2.4)
[2023-01-01 12:18] LABS: Alanine Aminotransferase 40 U/L (14-59); Albumin Globulin Ratio 0.8; Albumin Level 3.2 g/dL (3.4-5.0); Alkaline Phosphatase 171 U/L (46-116); Anion Gap 5.9; Aspartate Amino Transferase 35 U/L (15-37); BUN Creatinine Ratio 20.5; Bilirubin Total 0.9 mg/dL (0.2-1.0); Calcium 8.9 mg/dL (8.5-10.1); Carbon Dioxide 36.9 mmol/L (21.0-32.0); Chloride 102 mmol/L (98-107); Estimated GFR (African America >60 (>=60); Estimated GFR (Non-African Ame >60 (>=60); Globulin 4.1 g/dL; Glucose 130 mg/dL (74-106); Potassium 4.8 mmol/L (3.5-5.1); Sodium 140 mmol/L (136-145); Total Protein 7.3 g/dL (6.4-8.2)
[2023-01-01] MEDS: ALBUTEROL SULFATE 2.5 MG/3 ML VIAL NEB IH (12:25)
[2023-01-01 12:38] LABS: Basophils Absolute Auto 0.1 10^3/uL (0.0-0.1); Basophils Percent Auto 0.5 % (0.2-2.0); Eosinophils Percent Auto 0.2 % (0.9-7.0); Hematocrit 47.9 % (36.0-48.0); Hemoglobin 13.2 g/dL (12.0-16.0); Immature Granulocytes Abs Auto 0.35 10^3/uL (0.00-0.03); Immature Granulocytes Pct Auto 2.4 % (0.0-0.5); Lymphocytes Absolute Auto 0.4 10^3/uL (1.2-3.8); Lymphocytes Percent Auto 2.4 % (20.5-60.0); Mean Corpuscular HGB Conc 27.6 g/dL (29.9-35.2); Mean Corpuscular Hemoglobin 26.8 pg (26.7-34.0); Mean Corpuscular Volume 97.4 fL (81.0-99.0); Mean Platelet Volume 11.1 fL (9.5-13.5); Monocytes Percent Auto 6.8 % (1.7-12.0); Neutrophils Absolute Auto 12.7 10^3/uL (1.4-6.5); Neutrophils Percent Auto 87.7 % (43.0-75.0); Platelet Count 175 10^3/uL (150-450); Red Blood Count 4.92 10^6/uL (4.20-5.40); Red Cell Distribution Width 17.9 % (11.0-15.0); White Blood Count 14.5 10^3/uL (4.0-11.0)
[2023-01-01] MEDS: LACTATED RINGER'S SOLUTION 1,000 ML 150 ML IV ×3 (12:45→21:04)
[2023-01-01] MEDS: ALBUMIN HUMAN 50 GM/200 ML PREMIX IV ×3 (12:47→19:30)
[2023-01-01] MEDS: 0.9 % SODIUM CHLORIDE 1,000 ML 1000 ML IV (12:47)
[2023-01-01] MEDS: HYDROCORTISONE SODIUM SUCC PF 100 MG/2 ML VIAL IVP ×2 (12:53→19:30)
[2023-01-01] MEDS: CLINDAMYCIN PHOSPHATE/D5W 600 MG/50 ML PIGGYBACK 100 MG IV ×3 (12:55→21:55)
[2023-01-01] MEDS: AMIODARONE IN DEXTROSE,ISO-OSM 360 MG/200 ML PLAST..BAG 30 MG IV ×2 (13:00→19:29)
--- NOTE | 2023-01-01 13:11 | US_ITS ---
The [address] [address] Patient Name: DEBORA QUAN MRN: [id number] date: 1950 Sex: F Assigned Patient Location: ICU Current Patient Location: Accession/Order Number: [id number] Exam Date: 01/01/2023 13:10 Report Date: 01/01/2023 19:50 At the request of: KENNA WOODS Procedure: US venous doppler LE BI EXAMINATION: US venous doppler LE BI HISTORY: edema COMPARISON: No relevant comparison available. FINDINGS: REGION: Bilateral lower extremities THROMBI: None. COMPRESSIBILITY: Normal compressibility. FLOW: Normal waveform and antegrade flow between 5 and 20 cm/s. OTHER: None. US/US venous doppler LE BI IMPRESSION: 1. No deep vein thrombus within the right or left lower extremity. Preliminary findings were provided to the emergency department at time of imaging. Electronically authenticated by: HIEU PARISH Date: 01/01/2023 19:50
--- NOTE | 2023-01-01 16:02 | RESP.RT ---
FiO2 decreased - target SpO2 90-92%; Ti and flow adjusted.
[2023-01-01 16:11] LABS: SARS-CoV-2 NAA NOT DETECTED (NOT DETECTE)
[2023-01-01] MEDS: LACTATED RINGER'S SOLUTION 1,000 ML 1000 ML IV ×2 (16:57→17:39)
[2023-01-01] MEDS: NOREPINEPHRINE BITARTRATE 4 MG in DEXTROSE 5 % IN WATER 250 ML 12 MG IV ×3 (17:02→23:36)
[2023-01-01] MEDS: ENOXAPARIN SODIUM 40 MG/0.4 ML SYRINGE SUBQ (17:02)
[2023-01-01] MEDS: VANCOMYCIN HCL 2,000 MG in 0.9 % SODIUM CHLORIDE 500 ML 250 MG IV (18:56)
[2023-01-01 19:32] LABS: Glucometer 154 mg/dL (74-106)
--- NOTE | 2023-01-01 21:36 | RESP.RT ---
Titrated Fi02 down from 40% to 35%.
[2023-01-01 23:36] LABS: Glucometer 135 mg/dL (74-106)
[2023-01-02] VITALS (95 sets, daily range): BP systolic 93–159; BP diastolic 46–99; PULSE 63–126; RESP 20–24; TEMP 36.3–37.1; O2SAT 92–100
[2023-01-02 00:06] LABS: A. calcoaceticus-baumannii Cpx NOT DETECTED (NOT DETECTE); Bacteroides fragilis NOT DETECTED (NOT DETECTE); Candida albicans NOT DETECTED (NOT DETECTE); Candida auris NOT DETECTED (NOT DETECTE); Candida glabrata NOT DETECTED (NOT DETECTE); Candida krusei NOT DETECTED (NOT DETECTE); Candida parapsilosis NOT DETECTED (NOT DETECTE); Candida tropicalis NOT DETECTED (NOT DETECTE); Cryptococcus neoformans/gattii NOT DETECTED (NOT DETECTE); Enterobacter cloacae complex NOT DETECTED (NOT DETECTE); Enterobacterales NOT DETECTED (NOT DETECTE); Enterococcus faecalis NOT DETECTED (NOT DETECTE); Enterococcus faecium NOT DETECTED (NOT DETECTE); Haemophilus influenzae NOT DETECTED (NOT DETECTE); Klebsiella aerogenes NOT DETECTED (NOT DETECTE); Klebsiella pneumoniae group NOT DETECTED (NOT DETECTE); Listeria monocytogenes NOT DETECTED (NOT DETECTE); Neisseria meningitidis NOT DETECTED (NOT DETECTE); Proteus spp. NOT DETECTED (NOT DETECTE); Pseudomonas aeruginosa NOT DETECTED (NOT DETECTE); Salmonella spp. NOT DETECTED (NOT DETECTE); Serratia marcescens NOT DETECTED (NOT DETECTE); Staphylococcus epidermidis NOT DETECTED (NOT DETECTE); Staphylococcus lugdunensis NOT DETECTED (NOT DETECTE); Stenotrophomonas maltophilia NOT DETECTED (NOT DETECTE); Streptococcus agalactiae NOT DETECTED (NOT DETECTE); Streptococcus pneumoniae NOT DETECTED (NOT DETECTE); Streptococcus pyogenes NOT DETECTED (NOT DETECTE); Streptococcus spp. NOT DETECTED (NOT DETECTE)
[2023-01-02] MEDS: PROPOFOL 1,000 MG/100 ML VIAL 5.851 MG IV ×9 (00:17→19:22)
[2023-01-02] MEDS: AMIODARONE IN DEXTROSE,ISO-OSM 360 MG/200 ML PLAST..BAG 30 MG IV ×2 (01:23→07:11)
[2023-01-02 01:24] LABS: Staphylococcus spp. DETECTED (NOT DETECTE)
[2023-01-02] MEDS: HYDROCORTISONE SODIUM SUCC PF 100 MG/2 ML VIAL IVP ×3 (02:52→17:23)
[2023-01-02] MEDS: NOREPINEPHRINE BITARTRATE 4 MG in DEXTROSE 5 % IN WATER 250 ML 12 MG IV ×2 (02:53→08:10)
[2023-01-02] MEDS: IPRATROPIUM/ALBUTEROL SULFATE 3 ML AMPUL.NEB IH ×4 (04:07→20:22)
[2023-01-02] MEDS: CLINDAMYCIN PHOSPHATE/D5W 600 MG/50 ML PIGGYBACK 100 MG IV ×4 (04:13→21:07)
[2023-01-02 05:17] LABS: Basophils Absolute Auto 0.1 10^3/uL (0.0-0.1); Basophils Percent Auto 0.5 % (0.2-2.0); Eosinophils Percent Auto 0.2 % (0.9-7.0); Hematocrit 33.8 % (36.0-48.0); Hemoglobin 10.1 g/dL (12.0-16.0); Immature Granulocytes Abs Auto 1.25 10^3/uL (0.00-0.03); Immature Granulocytes Pct Auto 5.8 % (0.0-0.5); Lymphocytes Absolute Auto 0.3 10^3/uL (1.2-3.8); Lymphocytes Percent Auto 1.6 % (20.5-60.0); Mean Corpuscular HGB Conc 29.9 g/dL (29.9-35.2); Mean Corpuscular Hemoglobin 27.7 pg (26.7-34.0); Mean Corpuscular Volume 92.6 fL (81.0-99.0); Mean Platelet Volume 10.5 fL (9.5-13.5); Monocytes Absolute Auto 1.5 10^3/uL (0.3-0.8); Monocytes Percent Auto 7.1 % (1.7-12.0); Neutrophils Absolute Auto 18.4 10^3/uL (1.4-6.5); Neutrophils Percent Auto 84.8 % (43.0-75.0); Platelet Count 103 10^3/uL (150-450); Red Blood Count 3.65 10^6/uL (4.20-5.40); Red Cell Distribution Width 18.3 % (11.0-15.0); White Blood Count 21.6 10^3/uL (4.0-11.0)
[2023-01-02 05:55] LABS: Alanine Aminotransferase 27 U/L (14-59); Albumin Globulin Ratio 1.5; Albumin Level 3.8 g/dL (3.4-5.0); Alkaline Phosphatase 102 U/L (46-116); Anion Gap 8.3; Aspartate Amino Transferase 25 U/L (15-37); BUN Creatinine Ratio 16.2; Bilirubin Total 0.8 mg/dL (0.2-1.0); Calcium 8.8 mg/dL (8.5-10.1); Carbon Dioxide 33.5 mmol/L (21.0-32.0); Chloride 101 mmol/L (98-107); Estimated GFR (African America 55 (>=60); Estimated GFR (Non-African Ame 46 (>=60); Globulin 2.5 g/dL; Glucose 183 mg/dL (74-106); Magnesium 1.5 mg/dL (1.8-2.4); Potassium 4.8 mmol/L (3.5-5.1); Sodium 138 mmol/L (136-145); Total Protein 6.3 g/dL (6.4-8.2)
[2023-01-02 05:57] LABS: Troponin I High Sensitivity 140.6 pg/mL (4.0-51.3)
--- NOTE | 2023-01-02 06:00 | XR_ITS ---
The [address] [address] Patient Name: DEBORA QUAN MRN: [id number] date: 1950 Sex: F Assigned Patient Location: ICU Current Patient Location: ICU Accession/Order Number: [id number] Exam Date: 01/02/2023 05:30 Report Date: 01/02/2023 07:40 At the request of: DAMIAN LINDSAY Procedure: XR chest 1V PROCEDURE: XR chest 1V DATE: 01/02/2023 4:30 AM CDT COMPARISONS: 01/01/2023 CLINICAL INDICATION: 72 years Female Respiratory distress- Intubated patient FINDINGS: The heart is significantly prominent, stable from previous exam. There is diffuse increased interstitial markings throughout all lung mehta some of which may represent atelectasis and some of which may represent a small amount of interstitial fluid or this is a stable finding from previous exam. There is no evidence of right pleural effusion. There is some opacification overlying the lower left lung. This could be related to overlying cardiac silhouette. It could represent some atelectasis and/or elevated left hemidiaphragm. Small left pleural effusion is not excluded. There is no evidence of pneumothorax Endotracheal tube appears to be in good position above the jaycob in this projection. Its estimated to be approximately 3 cm above the jaycob. An enteric tube is in place. Caudal and is difficult to visualize due to underpenetration of the lower aspect of the radiograph. Caudal and appears to overlie the proximal stomach. Left arm PICC line tip overlies the mid superior vena cava, stable. XR/XR chest 1V IMPRESSION: The chest is similar to exam from the previous day. Electronically authenticated by: CODY LOVE Date: 01/02/2023 07:40
[2023-01-02] MEDS: VANCOMYCIN HCL 2,000 MG in 0.9 % SODIUM CHLORIDE 500 ML 250 MG IV (06:05)
[2023-01-02] MEDS: LACTATED RINGER'S SOLUTION 1,000 ML 150 ML IV ×3 (06:05→17:23)
[2023-01-02] MEDS: PANTOPRAZOLE SODIUM 40 MG VIAL IV ×2 (08:09→21:07)
[2023-01-02 08:21] LABS: Allen Test POSITIVE (POSITIVE); Base Excess ABG 10.2 mmol/L (-2.0-2.0); Fractionated Inspired Oxygen 35 %; HCO3 ABG 35.3 mmol/L (22.0-26.0); O2 Mode VENT; Oxygen Saturation ABG 96.3 %; PO2 ABG 85.8 mmHg (80.0-100.0); Puncture Site ARTLINE
[2023-01-02 08:22] LABS: Rate 20; Tidal Volume 500; Vent Mode AC/VC
--- NOTE | 2023-01-02 08:23 | P.PN_ITS ---
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 She was intubated in the emergency department because of a significant respiratory acidosis and pulmonary has been managing. Patient has a PICC line as well. Since placed on the ventilator patient's ABGs have improved. Her condition remains critical but overall has seen an improvement. Patient is still obtunded due to endotracheal intubation and therefore cannot answer any questions. Exam Narrative Exam Narrative: General: endotracheal tube intubation,morbid obesity Skin: candidiasis noted and bilateral axillary region and inguinal folds Head: atraumatic, acephalic Eyes: PERRLA, no nystagmus present, conjunctiva clear, no scleral icterus Nose: symmetric, no discharge, no maxillary or frontal sinus tenderness Mouth/Throat: no erythema, exudate, or tonsillar enlargement, normal dentition Neck: no masses palpated, normal thyroid, no JVD or audible carotid bruits Heart: Normal rate and rhythm, no murmurs/rubs/gallops Lungs: no audible wheezes, crackles Abdomen: Normal audible bowel sounds, no distension, No palpable masses, no orga nomegaly, no rebound/guarding/ or rigidity Musculoskeletal: swelling bilateral lower extremities and tops of feet Constitutional Vital Signs, click to edit/add: Last Vital Signs Temp 98.1 F 01/02/23 02:18 Pulse 106 H 01/02/23 07:37 Resp 20 01/02/23 07:37 BP 112/68 01/02/23 02:18 Pulse Ox 95 01/02/23 07:37 O2 Del Method Mechanical Ventilator 01/02/23 07:37 O2 Flow Rate 40 01/02/23 02:00 FiO2 35 01/02/23 07:37 Progress Note: Objective Labs Labs: Short CBC 01/01/23 01/02/23 Range/Units 11:58 04:45 WBC 14.5 H 21.6 H (4.0-11.0) 10^3/uL Hgb 13.2 10.1 L (12.0-16.0) g/dL Hct 47.9 33.8 L (36.0-48.0) % Plt Count 175 103 L (150-450) 10^3/uL BMP 01/01/23 01/02/23 11:58 04:45 Sodium 140 138 Potassium 4.8 4.8 Chloride 102 101 Carbon Dioxide 36.9 H 33.5 H BUN 17.0 19.0 H Creatinine 0.83 1.17 H Glucose 130 H 183 H Calcium 8.9 8.8 Cardiac Enzymes 01/01/23 Range/Units 08:56 Total Creatine Kinase 69 (26-192) U/L CK-MB (CK-2) 10.07 H* (<=3.60) ng/mL Liver Function 01/01/23 01/02/23 Range/Units 11:58 04:45 Total Bilirubin 0.9 0.8 (0.2-1.0) mg/dL AST 35 25 (15-37) U/L ALT 40 27 (14-59) U/L Alkaline Phosphatase 171 H 102 (46-116) U/L Albumin 3.2 L 3.8 (3.4-5.0) g/dL Progress Note: A&P Assessment and Plan (1) Pneumonia: Assessment and Plan: will de-escalate antibiotics and per pulmonary recommendations will continue on clindamycin and Levaquin due to renal failure. Cultures have all been negative so far. (2) Septic shock: Assessment and Plan: clinically improved and has been on levophed drip but has been decreasing the amount required continued to maintain MAP greater than 65 also received many liters of fluid (3) Respiratory failure: Assessment and Plan: ABGs have improved on mechanical ventilation will began weaning trial tomorrow (4) Acute respiratory acidosis: Assessment and Plan: see #3 (5) Acute upper GI bleed: Assessment and Plan: hemoglobin has remained stable continue to monitor daily continue IV Protonix (6) Acute hyperkalemia: Assessment and Plan: has resolved as respiratory acidosis has resolved (7) Altered mental status: Assessment and Plan: currently sedated and ventilated (8) Atrial fibrillation: Assessment and Plan: was on amiodarone will DC this and continue home medications and anticoagulation (9) NSTEMI (non-ST elevated myocardial infarction): Assessment and Plan: most likely type II secondary to supply demand mismatch (10) Type 2 diabetes mellitus: Assessment and Plan: sliding scale insulin (11) BOB (obstructive sleep apnea): Assessment and Plan: will need outpatient evaluation for BiPAP (12) Morbid obesity due to excess calories: Assessment and Plan: patient is predominantly bedridden and immobile needs to lose weight Plan patient is a full code Patient is getting Lovenox for deep vein thrombosis prophylaxis Patient is an inpatient status is expected to stay more than three days
[2023-01-02 08:27] LABS: ABG PCO2 59.8 mmHg (35.0-45.0)
--- NOTE | 2023-01-02 08:43 | PC.NURSE ---
Dr. Smith at [facility] assisted by this RN for Arterial line placement. Consent obtained from witnessed by this RN and Dr. Smith. Dr. Smith successfully placed arterial line in right radial artery.
--- NOTE | 2023-01-02 08:50 | PC.NURSE ---
Patient had approximately a 20 second run of an unconfirmed ventricular rhythm witnessed by this RN and Dr. De Dios. After discussion with care team, Amiodarone IV bolus and drip added to plan of care and initiated.
--- NOTE | 2023-01-02 08:53 | PC.NURSE ---
cooperative manager Ryan successfully placed 5 malagasy PICC line in left Basilic vein on patient. PICC line placement is verified by chest x-ray. Satisfactory position of PICC according to chest xray report dictation.
--- NOTE | 2023-01-02 09:33 | RESP.RT ---
Dr. De Dios notified via phone of abg results. no changes at this time
[2023-01-02 10:53] LABS: Glucometer 162 mg/dL (74-106)
--- NOTE | 2023-01-02 12:07 | REH.PT ---
Pt still sedated and vented. PT orders being d/c'd at this time. Reorder when status changes and pt is appropriate for therapy.
--- NOTE | 2023-01-02 12:44 | PM.PLPN ---
Progress Note: A&P Assessment and Plan (1) Respiratory failure: Plan 1. Pneumonia.? LLL infiltrate on CXR.? Clinically improved.? Currently on amikacin, clindamycin, and vancomycin.? Will D/C vancomycin for now? outside of MRSA coverage, clindamycin has Gram +.? Creatinine increasing with continued decrease UO? will change amikacin back to levofloxacin (especially as aminoglycosides + vancomycin can induce renal failure).? Cultures negative so far. 2. Septic shock secondary to #1.? Clinically improved.? Did not require epinephrine gtt.? Weaning down norepinephrine gtt?near point to turn off. Continue SoluCortef for now. Maintain MAP >65.? No growth from so far. 3. Whedl-hu-ukvsndn hypoxic respiratory failure.? Doing well from respiratory standpoint.? Begin weaning trial tomorrow. 4. Acute hypercapnic respiratory failure.? Clinically has OHS, +/- COPD contributing to CO2 retention.? Discussed with family she will need PSG, etc. and would benefit from PAP therapy. 5. Acute exacerbation of COPD. On Stiolto at home, found out she has been using Primatene Mist (epinephrine) excessively on top of that.? Explained that she should not be using Primatene ? prescription medications are much safer, and she may not be able to breath because of her hyper obesity, not just COPD.? May need to consider transitioning all medications over to nebulized. 6. Paroxysmal atrial fibrillation with rapid ventricular rate.? Monitoring rate ? it has improved.? Remains on anticoagulation. 7. Wide-complex tachycardia.? No further episodes.? Overall, suspect it is a rate-dependent left bundle branch block.? D/C amiodarone. 8. Hyperkalemia. Secondary to acute acidosis.? Improved with improvement in respiratory acidosis. 9. NSTEMI type 2. ?Elevated troponin today.? Most consistent with type 2 supply/demand mismatch from critical illness.? Can F/U with cardiology.? 10. Elevated BNP.? No evidence of acute CHF ? Echocardiogram was mildly hyperdynamic. BNP can also be increased d/t decreased renal clearance. 11. Hypomagnesemia. Replace 1gm Magnesium Sulfate IVPB. 12. Abnormal UA.? No growth on urine. 13. Diabetes mellitus type 2 with steroid-induced hyperglycemia.? SSI. 14. Hypertension.? Hold antihypertensives given septic shock. 15. Obstructive sleep apnea (BOB)/Obesity-hypoventilation syndrome (OHS).? Clinical diagnosis.? Needs outpatient evaluation to qualify for BiPAP or NIV. 16. Morbid/hyper obesity.?w/up limited by mobility. Since she is essentially immobile, family must being to assist patient in restricting calories (enabling). Patient is critically ill requiring intensive care unit monitoring.? Remains on ventilator and pressors, but clinically improving.? Discussed with family that the difficulty will be weaning her off the ventilator ? she will likely require a PAP bridge.? Major concern is respiratory w/up and management after discharge.? 40 minutes critical care time. Subjective Subjective Interval history: Patient remains sedated, on ventilator. Discussed case with RN & RT. & daughter in pt's room Updated them on progress made over the past 24 hours. states the patient has been lethargic and confused several days before admission - explained these are warning signs of hypercapnia. She has never been diagnosed with BOB. He states that she complains about not breathing, notes the pt says she can't get the air in. On top of albuterol and Stiolto, she gets OTC Primatene Mist and uses it at least 6 times a day - explained that this is pure adrenaline (epinephrine) and can affect the heart if overused. Also explained this is another sign of underlying BOB. She is doing well on the ventilator. pH has improved and pCO2 is down. Norepinephrine gtt down to 2mcg/min. Continues to have decreased urine output of dark urine. Exam Constitutional Vital Signs, click to edit/add: Last Vital Signs Temp 97.8 F 01/02/23 11:00 Pulse 86 01/02/23 11:28 Resp 22 01/02/23 11:28 BP 105/52 L 01/02/23 11:00 Pulse Ox 97 01/02/23 11:28 O2 Del Method BIPAP 01/02/23 11:28 O2 Flow Rate 40 01/02/23 02:00 FiO2 35 01/02/23 11:28 Documenting provider has reviewed patient's vital signs: yes Common normals: no apparent distress General appearance: patient mechanically ventilated Nutritional appearance: obese morbidly obese HENLA Other: 7.0 ETT Neck & C-Spine General: no tracheal deviation Chest Chest: symmetrical chest wall rise Respiratory Effort & inspection: no respiratory distress and does not use accessory muscles Auscultation: wheezes expiratory wheezes and throughout and diminished lung sounds Cardio Rhythm: abnormal rhythm irregularly irregular Other: No further wide-complex QRS since yesterday GI Inspection: central obesity Auscultation: normoactive bowel sounds Bladder/kidney exam: catheter in place Extremity Left upper extremity: upper arm (PICC) Neuro Sensorium/orientation: somnolent (Sedated) Motor exam: no tremor noted and no fasciculations
[2023-01-02] MEDS: LACTATED RINGER'S SOLUTION 1,000 ML 1000 ML IV (13:09)
--- NOTE | 2023-01-02 13:34 | PC.NURSE ---
Sedation has been titrated down per Dr. De Dios to start a weaning trial. Patient tolerating well. Propofol has been weaned down to 25mcg/kg/min
[2023-01-02] MEDS: LEVOFLOXACIN IN DEXTROSE 5 % 750 MG/150 ML PIGGYBACK IV (13:49)
[2023-01-02] MEDS: ALBUMIN HUMAN 25 GM/100 ML PREMIX IV (15:48)
[2023-01-02 16:25] LABS: Glucometer 168 mg/dL (74-106)
[2023-01-02] MEDS: ENOXAPARIN SODIUM 40 MG/0.4 ML SYRINGE SUBQ (17:23)
--- NOTE | 2023-01-02 20:22 | RESP.RT ---
Titrated Fi02 from 35% down to 30%.
[2023-01-02 21:23] LABS: Glucometer 165 mg/dL (74-106)
[2023-01-03] VITALS (54 sets, daily range): BP systolic 108–165; BP diastolic 52–93; PULSE 61–83; RESP 20–23; TEMP 35–36.6; O2SAT 92–100
[2023-01-03] MEDS: LACTATED RINGER'S SOLUTION 1,000 ML 150 ML IV ×3 (01:09→13:59)
[2023-01-03] MEDS: PROPOFOL 1,000 MG/100 ML VIAL 5.851 MG IV ×5 (02:34→17:40)
[2023-01-03] MEDS: HYDROCORTISONE SODIUM SUCC PF 100 MG/2 ML VIAL IVP ×2 (02:37→09:39)
[2023-01-03] MEDS: CLINDAMYCIN PHOSPHATE/D5W 600 MG/50 ML PIGGYBACK 100 MG IV ×3 (03:23→16:11)
[2023-01-03] MEDS: IPRATROPIUM/ALBUTEROL SULFATE 3 ML AMPUL.NEB IH ×3 (04:04→15:30)
[2023-01-03 04:29] LABS: Basophils Percent Auto 0.2 % (0.2-2.0); Eosinophils Percent Auto 0.1 % (0.9-7.0); Hematocrit 31.7 % (36.0-48.0); Hemoglobin 9.7 g/dL (12.0-16.0); Immature Granulocytes Abs Auto 0.11 10^3/uL (0.00-0.03); Immature Granulocytes Pct Auto 1.1 % (0.0-0.5); Lymphocytes Absolute Auto 0.6 10^3/uL (1.2-3.8); Lymphocytes Percent Auto 5.5 % (20.5-60.0); Mean Corpuscular HGB Conc 30.6 g/dL (29.9-35.2); Mean Corpuscular Hemoglobin 27.3 pg (26.7-34.0); Mean Corpuscular Volume 89.3 fL (81.0-99.0); Mean Platelet Volume 10.1 fL (9.5-13.5); Monocytes Absolute Auto 0.6 10^3/uL (0.3-0.8); Monocytes Percent Auto 5.9 % (1.7-12.0); Neutrophils Absolute Auto 8.9 10^3/uL (1.4-6.5); Neutrophils Percent Auto 87.2 % (43.0-75.0); Platelet Count 86 10^3/uL (150-450); Red Blood Count 3.55 10^6/uL (4.20-5.40); Red Cell Distribution Width 18.6 % (11.0-15.0); White Blood Count 10.2 10^3/uL (4.0-11.0)
[2023-01-03 04:53] LABS: Alanine Aminotransferase 22 U/L (14-59); Albumin Globulin Ratio 1.4; Albumin Level 3.4 g/dL (3.4-5.0); Alkaline Phosphatase 87 U/L (46-116); Aspartate Amino Transferase 19 U/L (15-37); BUN Creatinine Ratio 18.2; Bilirubin Total 0.8 mg/dL (0.2-1.0); Calcium 8.6 mg/dL (8.5-10.1); Carbon Dioxide 33.6 mmol/L (21.0-32.0); Chloride 101 mmol/L (98-107); Estimated GFR (African America 53 (>=60); Estimated GFR (Non-African Ame 44 (>=60); Globulin 2.5 g/dL; Glucose 160 mg/dL (74-106); Magnesium 1.5 mg/dL (1.8-2.4); Potassium 4.6 mmol/L (3.5-5.1); Sodium 138 mmol/L (136-145); Total Protein 5.9 g/dL (6.4-8.2)
--- NOTE | 2023-01-03 06:00 | XR_ITS ---
The [address] [address] Patient Name: DEBORA QUAN MRN: [id number] date: 1950 Sex: F Assigned Patient Location: ICU Current Patient Location: ICU Accession/Order Number: [id number] Exam Date: 01/03/2023 05:58 Report Date: 01/03/2023 09:34 At the request of: KENNA WOODS Procedure: XR chest 1V EXAM: XR chest 1V HISTORY: Respiratory distress. Check tube/catheter placement. COMPARISON: 01/02/2023 FINDINGS: The tubes, lines and catheters remain in satisfactory position. The cardiopulmonary status is unchanged from the prior exam. The mediastinum and bony thorax are stable. No new abnormality is detected. XR/XR chest 1V IMPRESSION: Stable chest. No significant interval change. Electronically authenticated by: DESTINY MORIN Date: 01/03/2023 09:34
[2023-01-03] MEDS: FUROSEMIDE 40 MG/4 ML VIAL IVP (08:09)
[2023-01-03] MEDS: PANTOPRAZOLE SODIUM 40 MG VIAL IV (08:09)
--- NOTE | 2023-01-03 08:43 | PM.PN ---
Progress Note: Subjective Subjective Interval history: patient is a 72-year-old female with a history of significant morbid obesity, obstructive sleep apnea, type 2 diabetes, hypertension, GERD, atrial fibrillation.her who is her primary deputy director of finance is present at bedside today and states that she is been primarily bedridden for the past three years. She was intubated in the emergency department because of a significant respiratory acidosis and pulmonary has been managing. Patient has a PICC line as well. Since placed on the ventilator patient's ABGs have improved. Her condition remains critical but overall has seen an improvement. Patient is still obtunded due to endotracheal intubation and therefore cannot answer any questions. Sepsis has been resolving but then episode of hypothermia today. Exam Narrative Exam Narrative: General: endotracheal tube intubation,morbid obesity Skin: candidiasis noted and bilateral axillary region and inguinal folds Head: atraumatic, acephalic Eyes: PERRLA, no nystagmus present, conjunctiva clear, no scleral icterus Nose: symmetric, no discharge, no maxillary or frontal sinus tenderness Mouth/Throat: no erythema, exudate, or tonsillar enlargement, normal dentition Neck: no masses palpated, normal thyroid, no JVD or audible carotid bruits Heart: Normal rate and rhythm, no murmurs/rubs/gallops Lungs: no audible wheezes, crackles Abdomen: Normal audible bowel sounds, no distension, No palpable masses, no organomegaly, no rebound/guarding/ or rigidity Musculoskeletal: swelling bilateral lower extremities and tops of feet Constitutional Vital Signs, click to edit/add: Last Vital Signs Temp 97.8 F 01/03/23 00:23 Pulse 63 01/03/23 08:00 Resp 20 01/03/23 08:00 BP 139/72 H 01/03/23 08:09 Pulse Ox 97 01/03/23 08:00 O2 Del Method Mechanical Ventilator 01/03/23 08:00 O2 Flow Rate 40 01/02/23 02:00 FiO2 30 01/03/23 08:00 Progress Note: Objective Labs Labs: Short CBC 01/03/23 Range/Units 04:20 WBC 10.2 (4.0-11.0) 10^3/uL Hgb 9.7 L (12.0-16.0) g/dL Hct 31.7 L (36.0-48.0) % Plt Count 86 L (150-450) 10^3/uL BMP 01/03/23 04:20 Sodium 138 Potassium 4.6 Chloride 101 Carbon Dioxide 33.6 H BUN 22.0 H Creatinine 1.21 H Glucose 160 H Calcium 8.6 Liver Function 01/03/23 Range/Units 04:20 Total Bilirubin 0.8 (0.2-1.0) mg/dL AST 19 (15-37) U/L ALT 22 (14-59) U/L Alkaline Phosphatase 87 (46-116) U/L Albumin 3.4 (3.4-5.0) g/dL Progress Note: A&P Assessment and Plan (1) Pneumonia: Assessment and Plan: will continue on clindamycin and Levaquin due to renal failure. Cultures have all been negative so far. (2) Septic shock: Assessment and Plan: off levophed drip, maintain MAP greater than 65 also received many liters of fluid (3) Respiratory failure: Assessment and Plan: ABGs have improved on mechanical ventilation will began weaning trial (4) Left frontal lobe lesion: Assessment and Plan: CT scan showed this today, small bleed verse artifact vs stroke; recommended to follow up 4-6 hours. (5) Hypothermia: Assessment and Plan: could be from acute stroke, bear huggers and warm fluids. (6) Acute respiratory acidosis: Assessment and Plan: see #3 (7) Acute upper GI bleed: Assessment and Plan: hemoglobin has remained stable continue to monitor daily continue IV Protonix (8) Acute hyperkalemia: Assessment and Plan: has resolved as respiratory acidosis has resolved (9) Altered mental status: Assessment and Plan: currently sedated and ventilated but many factors (10) Atrial fibrillation: Assessment and Plan: was on amiodarone but d/c this and continue home medications and anticoagulation (11) NSTEMI (non-ST elevated myocardial infarction): Assessment and Plan: most likely type II secondary to supply demand mismatch, had echo 01/01/23, formal cards consult and possible recheck echo as trop has increased; could also be due to her renal function; given lasix 40mg IV x1 (12) Type 2 diabetes mellitus: Assessment and Plan: sliding scale insulin (13) BOB (obstructive sleep apnea): Assessment and Plan: will need outpatient evaluation for BiPAP (14) Morbid obesity due to excess calories: Assessment and Plan: patient is predominantly bedridden and immobile needs to lose weight Plan patient is a full code Patient is getting Lovenox for deep vein thrombosis prophylaxis Patient is an inpatient status is expected to stay more than three days do to her critical level probable transfer to higher level of care
[2023-01-03 11:13] LABS: ABG PCO2 49.9 mmHg (35.0-45.0); Allen Test POSITIVE (POSITIVE); Base Excess ABG 10.4 mmol/L (-2.0-2.0); HCO3 ABG 34.5 mmol/L (22.0-26.0); Oxygen Saturation ABG 97.3 %; PO2 ABG 85.4 mmHg (80.0-100.0); pH ABG 7.447 (7.350-7.450)
[2023-01-03 11:14] LABS: Fractionated Inspired Oxygen 30 %; Minute Volume 10.6; O2 Mode VENT; Puncture Site ART LINE; Rate 20; Tidal Volume 500; Vent Mode AC/VC
--- NOTE | 2023-01-03 11:46 | PM.PLPN ---
Progress Note: A&P Assessment and Plan (1) Respiratory failure: Plan 1. Pneumonia.? LLL infiltrate on CXR ? unchanged vs. slight improvement.? Antibiotics adjusted yesterday ? on Levaquin + clindamycin.? 2. Septic shock secondary to #1.? Shock resolved.? Stop SoluCortef. 3. Zwnrt-lr-hqeninv hypoxic respiratory failure.? FiO2 down to 30%.? Plans were to start weaning protocol, but given unexplained hypothermia, holding off for now until cause can be determined.? 4. Acute hypercapnic respiratory failure.? Clinically has OHS, +/- COPD contributing to CO2 retention.? Improved with ventilator.? Anticipate BiPAP bridge. 5. Acute exacerbation of COPD. Improved wheezes.? Home Stiolto, overusing OTC Primatene.? No PFT done inpatient, and I doubt patient could fit in the plethysmography.? It will not change the plan of care at this time. 6. Hypothermia.? Originally presented hypothermic which was attributed to septic shock, resolved.? New hypothermia today, required Bear Hugger.? No currently identified reason as signs of sepsis are improving well.? Concerned for hypothalamic stroke ? ordering STAT CT head.? Recheck cultures. 7. Paroxysmal atrial fibrillation with rapid ventricular rate.? Rate improved, <100. Continue anticoagulation. 8. Wide-complex tachycardia.? Most consistent with rate-dependent left bundle branch block.? Remains off amiodarone. 9. Hyperkalemia. Secondary to acute acidosis.? Resolved ? K+ 4.6 today. 10. NSTEMI type 2. ?Initially was suspected type 2 supply/demand mismatch from critical illness, but troponin has now doubled despite improvement clinically.? Minimal increase in creatinine yesterday (1.17 to 1.21) ? not sure that this would account for the doubling in troponin alone. 11. Acute renal failure secondary to acute tubular necrosis, hypotension, sepsis, medications, etc.? Creatinine up to 1.21, was 0.64 on 01/01/2023.? Continue IV fluids, eliminate nephrotoxic drugs (vancomycin and amikacin discontinued yesterday). 12. Elevated BNP.? Echocardiogram was mildly hyperdynamic. Level increased d/t decreased renal clearance +/- fluid resuscitation.? Associated with troponin increase? 13. Hypomagnesemia. Magnesium remains low.? Replace again. 14. Abnormal UA.? No growth on urine. Rechecking UA 15. Diabetes mellitus type 2 with steroid-induced hyperglycemia.? SSI. 16. Hypertension.? Antihypertensives were held given septic shock.? If SBP increasing, may need to restart. 17. Obstructive sleep apnea (BOB)/Obesity-hypoventilation syndrome (OHS).? Clinical diagnosis.? Needs outpatient evaluation to qualify for BiPAP or NIV. 18. Morbid/hyper obesity.?w/up limited by mobility. Patient is critically ill requiring intensive care unit monitoring.? New hypothermia of undetermined etiology, with doubling of troponin?patient remains ill.? She is not ready for extubation until these critical issues are dealt with (in the event she would require transfer to at tertiary care center).? 40 minutes critical care time. Subjective Subjective Interval history: Discussed with RN, RT. Overall, patient is improving - off pressors, MAP >65; urine output improved with better color; ABG better; wheezes resolving. However, the patient developed hypothermia (~92'F) inexplicably this AM requiring a Bear Hugger. WBC is normal range. Cultures so far are negative (other than a random non-identified Staph initially). in room, updated him on the patient. He asked if PFT ordered by Dr. Meng could be done this admission. I stated no - they are only done outpatient, and I highly doubt patient would be able to get into the body box. Exam Constitutional Vital Signs, click to edit/add: Last Vital Signs Temp 97.8 F 01/03/23 00:23 Pulse 73 01/03/23 11:16 Resp 23 01/03/23 11:16 BP 146/81 H 01/03/23 08:30 Pulse Ox 95 01/03/23 11:16 O2 Del Method Mechanical Ventilator 01/03/23 11:16 O2 Flow Rate 40 01/02/23 02:00 FiO2 30 01/03/23 11:16 Common normals: apparent distress Nutritional appearance: obese morbidly obese [facility] Other: 7.0 ETT Eye Common normals: PERRL Other: Does not follow commands, but does try to close eyes when I manually open them to check pupils. Chest Chest: symmetrical chest wall rise Respiratory Effort & inspection: no respiratory distress Auscultation: rhonchi (Scattered - new); no wheezes (Resolved) Cardio Rhythm: abnormal rhythm irregularly irregular GI Inspection: central obesity Bladder/kidney exam: catheter in place Catheter type (Female): urethral (Urine color improved ) Extremity General: cyanosis and edema (Significant bilateral lower extremity lymphedema (chronic)) Neuro Other: Sedated, does not follow directions, will withdraw from pain. No posturing noted.
--- NOTE | 2023-01-03 13:25 | CT_ITS ---
The [address] [address] Patient Name: DEBORA QUAN MRN: [id number] date: 1950 Sex: F Assigned Patient Location: ICU Current Patient Location: ICU Accession/Order Number: [id number] Exam Date: 01/03/2023 12:40 Report Date: 01/03/2023 13:51 At the request of: DAMIAN LINDSAY Procedure: CT head/brain wo con CT head/brain wo con CLINICAL HISTORY: Acute hypothermia, mental status changes. COMPARISON: None Available. TECHNIQUE: Noncontrast axial CT images of the brain were obtained from the vertex through the skull base. Sagittal and coronal reconstructions. Bone and brain windows are provided for review. Dose reduction techniques were achieved by using automated exposure control and/or adjustment of mA and/or kV according to patient size and/or use of iterative reconstruction technique. FINDINGS: Global volume loss and ex vacuo prominence of the ventricles. Multifocal white matter hypodensity is nonspecific but likely from small vessel ischemic disease. Tiny amount of artifact over the left frontal extra-axial region likely due to beam hardening or less likely tiny focus of subarachnoid blood. No other acute bleed, mass, or midline shift. No CT evidence of acute large territorial infarction. Trace air-fluid level right maxillary sinus. The mastoid air cells are well aerated. Scalp, calvarium and orbital contents are free of disease. CT/CT head/brain wo con IMPRESSION: Favor small area of artifact over the left frontal region or less likely tiny focus of subarachnoid blood. Recommend short-term follow-up noncontrast head CT and 4 to 6 hours. Electronically authenticated by: BRYCE VERONICA Date: 01/03/2023 13:51
--- NOTE | 2023-01-03 13:25 | CT_ITS ---
The [address] [address] Patient Name: DEBORA QUAN MRN: [id number] date: 1950 Sex: F Assigned Patient Location: ICU Current Patient Location: ICU Accession/Order Number: [id number] Exam Date: 01/03/2023 12:40 Report Date: 01/03/2023 13:57 At the request of: DAMIAN LINDSAY Procedure: CT chest wo con CT chest wo con CLINICAL HISTORY: Respiratory failure, pneumonia COMPARISON: 01/03/2023. CT CHEST TECHNIQUE: Noncontrast axial CT images obtained from lung apices through lung bases. Coronal and sagittal reconstructions performed. Dose reduction techniques were achieved by using automated exposure control and/or adjustment of mA and/or kV according to patient size and/or use of iterative reconstruction technique. CT CHEST FINDINGS: Large body habitus partially limiting. Lower thyroid unremarkable. No axillary adenopathy thoracic spondylosis without acute bony process. Visualized upper abdomen with enteric tube in the stomach. Left-sided CVC with tip in the SVC. Endotracheal tube with tip terminating near the level of the aortic arch in good position. No pneumothorax. Cardiomegaly. No pericardial effusion. Subcentimeter mediastinal nodes. Posterior basilar consolidations with near complete collapse of the left lower lobe with endobronchial filling. Also small amount of lingular opacity. Overall most suspicious for aspiration, with pneumonia and/or some component of compressive atelectasis also may be possible. There could be up to trace to small effusions. CT/CT chest wo con IMPRESSION: Bilateral predominantly basilar airspace opacities with endobronchial filling suggestive of aspiration and/or pneumonia. There is near complete collapse of the left lower lobe. Bronchoscopy may be considered. Short-term follow-up. Support devices in place without pneumothorax. Electronically authenticated by: BRYCE VERONICA Date: 01/03/2023 13:57
[2023-01-03 14:05] LABS: Glucometer 165 mg/dL (74-106)
[2023-01-03 16:11] LABS: Glucometer 174 mg/dL (74-106)
--- NOTE | 2023-01-03 16:24 | P.DS_ITS ---
DS: Providers Provider Date of admission: 01/01/23 07:35 Primary care physician: Gerardo Meng DO Admitting clinician: Merritt Solorzano Consults: 01/01/23 Consult to Dietitian Routine Reason For Exam: PROTOCOL 01/01/23 08:28 Consult to Pulmonology Routine Consulting Provider: Trevor De Dios Occupational Therapy Eval and Treat Routine Physical Therapy Eval and Treat Routine Discharging clinician: Jacquie Martinez DS: Diagnosis Discharge Diagnosis (1) Pneumonia: (2) Septic shock: (3) Respiratory failure: (4) Left frontal lobe lesion: (5) Hypothermia: (6) Acute respiratory acidosis: (7) Acute upper GI bleed: (8) Acute hyperkalemia: (9) Altered mental status: (10) Atrial fibrillation: (11) NSTEMI (non-ST elevated myocardial infarction): (12) Type 2 diabetes mellitus: (13) BOB (obstructive sleep apnea): (14) Morbid obesity due to excess calories: Plan (1) Pneumonia: ?Assessment and Plan: will continue on clindamycin and Levaquin due to renal failure. Cultures have all been negative so far. (2) Septic shock: ?Assessment and Plan: off levophed drip, maintain MAP greater than 65 also received many liters of fluid (3) Respiratory failure: ?Assessment and Plan: ABGs have improved on mechanical ventilation will began weaning trial (4) Left frontal lobe lesion: ?Assessment and Plan: CT scan showed this today, small bleed verse artifact vs stroke; recommended to follow up 4-6 hours. (5) Hypothermia: ?Assessment and Plan: could be from acute stroke, bear huggers and warm fluids. (6) Acute respiratory acidosis: ?Assessment and Plan: see #3 (7) Acute upper GI bleed: ?Assessment and Plan: hemoglobin has remained stable continue to monitor daily continue IV Protonix (8) Acute hyperkalemia: ?Assessment and Plan: has resolved as respiratory acidosis has resolved (9) Altered mental status: ?Assessment and Plan: currently sedated and ventilated but many factors (10) Atrial fibrillation: ?Assessment and Plan: was on amiodarone but d/c this and continue home medications and anticoagulation (11) NSTEMI (non-ST elevated myocardial infarction): ?Assessment and Plan: most likely type II secondary to supply demand mismatch, had echo 01/01/23, formal cards consult and possible recheck echo as trop has increased; could also be due to her renal function; given lasix 40mg IV x1 (12) Type 2 diabetes mellitus: ?Assessment and Plan: sliding scale insulin (13) BOB (obstructive sleep apnea): ?Assessment and Plan: will need outpatient evaluation for BiPAP (14) Morbid obesity due to excess calories: ?Assessment and Plan: patient is predominantly bedridden and immobile needs to lose weight DS: Summary Hospital Course Hospital Course: patient is a 72-year-old female with a history of significant morbid obesity, obstructive sleep apnea, type 2 diabetes, hypertension, GERD, atrial fibrillation.her who is her primary teachers assistant is present at bedside today and states that she is been primarily bedridden for the past three years. She was intubated in the emergency department because of a significant respiratory acidosis and pulmonary has been managing. Patient has a PICC line as well. Since placed on the ventilator patient's ABGs have improved. Her condition remains critical but overall has seen an improvement. Patient is still obtunded due to endotracheal intubation and therefore cannot answer any questions. Sepsis has been resolving but then episode of hypothermia today. I called [facility] and spoke to the stroke team about finding of tiny artifact over the left frontal region possible subarachnoid blood but agreed that she would be best served in the MICU and they consulting service, so awaiting bed placement at [facility] for MICU where she will be transferred, Dr. Olmstead as accepting physician. Status at Discharge Cognitive/behavioral status at discharge: intubated Time Spent with Patient Time attestation: Total time spent providing and/or coordinating discharge services: Quality: Stroke Symptom Onset Unknown: No Exam Narrative Exam Narrative: intubation,morbid obesity Skin: candidiasis noted and bilateral axillary region and inguinal folds Head: atraumatic, acephalic Eyes: PERRLA, no nystagmus present, conjunctiva clear, no scleral icterus Nose: symmetric, no discharge, no maxillary or frontal sinus tenderness Mouth/Throat: no erythema, exudate, or tonsillar enlargement, normal dentition Neck: no masses palpated, normal thyroid, no JVD or audible carotid bruits Heart: Normal rate and rhythm, no murmurs/rubs/gallops Lungs: no audible wheezes, crackles Abdomen: Normal audible bowel sounds, no distension, No palpable masses, no organomegaly, no rebound/guarding/ or rigidity Musculoskeletal: swelling bilateral lower extremities and tops of feet Constitutional Vital Signs, click to edit/add: Last Vital Signs Temp 95 F L 01/03/23 16:00 Pulse 83 01/03/23 16:00 Resp 22 01/03/23 16:00 BP 121/60 H 01/03/23 16:00 Pulse Ox 95 01/03/23 16:00 O2 Del Method Mechanical Ventilator 01/03/23 16:00 O2 Flow Rate 40 01/02/23 02:00 FiO2 30 01/03/23 16:00 DS: Data Data Completed and Pending Labs on day of discharge: Labs from last 24 hours 01/03/23 01/03/23 01/03/23 16:10 14:04 11:00 WBC RBC Hgb Hct MCV MCH MCHC RDW Plt Count MPV Neut % (Auto) Lymph % (Auto) [place] % (Auto) Eos % (Auto) Baso % (Auto) Neut # (Auto) Lymph # (Auto) [place] # (Auto) Eos # (Auto) Baso # (Auto) Abs Immat Gran (auto) Imm/Tot Granulo (auto) Puncture Site Art line ABG pH 7.447 ABG pCO2 49.9 H ABG pO2 85.4 ABG HCO3 34.5 H ABG O2 Saturation 97.3 ABG Base Excess 10.4 H [place]ilo Test Positive Minute Volume 10.6 Vent Mode Ac/vc FiO2 30 Tidal Volume 500 Sodium Potassium Chloride Carbon Dioxide Anion Gap BUN Creatinine Est GFR ( Amer) Est GFR (Non-Af Amer) BUN/Creatinine Ratio Glucose Calcium Magnesium Total Bilirubin AST ALT Alkaline Phosphatase Troponin I High Sens NT-Pro-B Natriuret Pep Total Protein Albumin Globulin Albumin/Globulin Ratio POC Glucose 174 H 165 H 01/03/23 01/02/23 01/02/23 04:20 21:09 16:24 WBC 10.2 RBC 3.55 L Hgb 9.7 L Hct 31.7 L MCV 89.3 MCH 27.3 MCHC 30.6 RDW 18.6 H Plt Count 86 L MPV 10.1 Neut % (Auto) 87.2 H Lymph % (Auto) 5.5 L [place] % (Auto) 5.9 Eos % (Auto) 0.1 L Baso % (Auto) 0.2 Neut # (Auto) 8.9 H Lymph # (Auto) 0.6 L [place] # (Auto) 0.6 Eos # (Auto) 0.0 Baso # (Auto) 0.0 Abs Immat Gran (auto) 0.11 H Imm/Tot Granulo (auto) 1.1 H Puncture Site ABG pH ABG pCO2 ABG pO2 ABG HCO3 ABG O2 Saturation ABG Base Excess [place]ilo Test Minute Volume Vent Mode FiO2 Tidal Volume Sodium 138 Potassium 4.6 Chloride 101 Carbon Dioxide 33.6 H Anion Gap 8.0 BUN 22.0 H Creatinine 1.21 H Est GFR ( Amer) 53 L Est GFR (Non-Af Amer) 44 L BUN/Creatinine Ratio 18.2 Glucose 160 H Calcium 8.6 Magnesium 1.5 L Total Bilirubin 0.8 AST 19 ALT 22 Alkaline Phosphatase 87 Troponin I High Sens 286.0 H* NT-Pro-B Natriuret Pep 1869.0 H* Total Protein 5.9 L Albumin 3.4 Globulin 2.5 Albumin/Globulin Ratio 1.4 POC Glucose 165 H 168 H Preliminary micro results at discharge 01/01/23 03:10 - Preliminary Blood NO GROWTH AT 36-48 HOURS. FINAL TO FOLLOW. 01/01/23 02:10 Blood Culture Result 1 - Preliminary Blood NO GROWTH AT 36-48 HOURS. FINAL TO FOLLOW. Discharge Plan Discharge Disposition: [facility] Condition: Critical Discharge location: [facility] [place] [facility], Dr. Olmstead
== END 2023-01-03 19:25 | disposition short-term general hospital (02) | DRG 871 ==
LOC: ER 07:12 → ICU 07:37
PROVIDERS: Family Medicine; Internal Medicine; Admitting Provider Family Medicine; Emergency Provider Internal Medicine; PCP Internal Medicine; Visit Provider Family Medicine
DX: A41.9 Sepsis, unspecified organism (principal); I21.4 Non-ST elevation (NSTEMI) myocardial infarction; J18.9 Pneumonia, unspecified organism; R65.21 Severe sepsis with septic shock; J96.02 Acute respiratory failure with hypercapnia; J69.0 Pneumonitis due to inhalation of food and vomit; J96.21 Acute and chronic respiratory failure with hypoxia; N17.0 Acute kidney failure with tubular necrosis; K92.2 Gastrointestinal hemorrhage, unspecified; J44.1 Chronic obstructive pulmonary disease with (acute) exacerbation; J44.0 Chronic obstructive pulmonary disease with (acute) lower respiratory infection; N39.0 Urinary tract infection, site not specified; Z68.44 Body mass index [BMI] 60.0-69.9, adult; E66.2 Morbid (severe) obesity with alveolar hypoventilation; G93.9 Disorder of brain, unspecified; T68.XXXA Hypothermia, initial encounter; E87.5 Hyperkalemia; R41.82 Altered mental status, unspecified; I48.91 Unspecified atrial fibrillation; E11.9 Type 2 diabetes mellitus without complications; G47.33 Obstructive sleep apnea (adult) (pediatric); Z74.01 Bed confinement status; B37.2 Candidiasis of skin and nail; Z79.01 Long term (current) use of anticoagulants; Z79.899 Other long term (current) drug therapy; Z79.891 Long term (current) use of opiate analgesic; Z20.822 Contact with and (suspected) exposure to COVID-19; Z88.0 Allergy status to penicillin; R31.9 Hematuria, unspecified; D69.6 Thrombocytopenia, unspecified; R00.0 Tachycardia, unspecified; I10 Essential (primary) hypertension; K21.9 Gastro-esophageal reflux disease without esophagitis
CPT/HCPCS: 36415; 36569; 36592; 36600; 70450; 71045; 71250; 80048; 80053; 80179; 80202; 80307; 80320; 80329; 81003; 81015; 82140; 82271; 82550; 82553; 82805; 83605; 83735; 83874; 83880; 84436; 84443; 84481; 84484; 85007; 85025; 85610; 85730; 87040; 87070; 87086; 87150; 87186; 87635; 87804; 87811; 93005; 93306; 93970; 94002; 94003; 94640; 94660; 94761; 96361; 96365; 96366; 96368; 96372; 96375; 96376; 99291; 99292; C1887; G0378; J0278; J1720; J3370; P9047